=== PATIENT | male | born 1945 | race Caucasian/White ===

== ENCOUNTER → 2018-03-04 09:14 | Outpatient (CLI) | payer OTHER, SELFPAY ==
--- NOTE | 2018-03-04 | DI.MRI.S_ITS ---
PROCEDURE: MR SHOULDER LT WO CON INDICATIONS: Left shoulder pain TECHNIQUE: Noncontrast oblique coronal T2 fast spin echo with fat saturation, oblique sagittal T1 spin echo and T2 fast spin echo with fat saturation, axial T1 spin echo and T2 fast spin echo with fat saturation through the shoulder. COMPARISON: None. FINDINGS: Image quality: Diagnostic. Rotator cuff: There is no full-thickness or high-grade partial-thickness tear of the rotator cuff. However, there is prominent thickening and diffuse increased signal identified involving the distal supraspinatus, infraspinatus, and subscapularis tendons. There are areas of low moderately partial-thickness tearing, most prominent at the junction of the supraspinatus and infraspinatus tendons. A small amount of fluid extending along the infraspinatus myotendinous junction does raise the suspicion for a delaminating/interstitial partial-thickness tear. The teres minor tendon is intact. There is no significant atrophy of the rotator cuff muscles. Bones and bursae: No there is no acute fracture, dislocation, suspicious osseous lesion, or evidence of avascular necrosis. Moderate to severe degenerative changes are noted involving the glenohumeral and acromioclavicular joints with associated marginal osteophytes and degenerative/reactive marrow edema with areas of degenerative cystic change and chondromalacia. There is a moderate-sized glenohumeral joint effusion. A small amount of fluid is contained within the subacromial subdeltoid bursa. Capsule and soft tissues: Evaluation of the labrum and the glenohumeral ligaments is difficult without intra-articular contrast. However, circumferential degenerative tearing of the labrum is present. The long head of biceps tendon is edematous and thickened along its intra-articular course, suggesting partial-thickness tearing and prominent tendinopathy. There is slight edema of the inferior glenohumeral ligament, which may be related to a ligamentous sprain. No full-thickness ligamentous tears are evident. IMPRESSION: 1. Low to moderate grade partial-thickness tearing and prominent tendinopathy of the rotator cuff tendons is more prominent at the junction of the supraspinatus and infraspinatus tendons. 2. Moderate to severe degenerative changes of the glenohumeral and acromioclavicular joint. 3. Prominent tendinopathy and probable intrasubstance partial thickness tearing of the long head of the biceps tendon. 4. Circumferential degenerative tearing of the labrum. 5. Possible low-grade sprain of the inferior glenohumeral ligament. 6. A small moderate-sized glenohumeral joint effusion. Dictated by: Michael Vasquez M.D. on 03/04/2018 at 10:47 Approved by: Michael Vasquez M.D. on 03/04/2018 at 11:15
== END ==
PROVIDERS: PCP Nurse Practitioner Primary Care; Visit Provider Nurse Practitioner Primary Care
DX: M25.512 Pain in left shoulder (principal); M75.102 Unspecified rotator cuff tear or rupture of left shoulder, not specified as traumatic; M19.012 Primary osteoarthritis, left shoulder; S46.112A Strain of muscle, fascia and tendon of long head of biceps, left arm, initial encounter
CPT/HCPCS: 73221

== ENCOUNTER 2018-05-03 06:43 | Inpatient (IN) | payer OTHER, SELFPAY ==
[2018-04-04 08:48] VITALS: BMI 42.5
[2018-05-03] VITALS (13 sets, daily range): BP systolic 109–176; BP diastolic 65–101; PULSE 70–81; RESP 14–24; TEMP 36–37.3; O2SAT 91–95; BMI 42.5
--- NOTE | 2018-05-03 | DI.RAD.S_ITS ---
PROCEDURE: XR SHOULDER LT 1V INDICATIONS: POST OPERATIVE TOTAL LEFT SHOULDER. TECHNIQUE: 1 views of the shoulder were acquired. COMPARISON: None. FINDINGS: Bones: Expected postoperative changes are present related to left shoulder arthroplasty. The metallic prostatic component appears to be appropriately seated. No obvious fractures are evident. Degenerative changes of the chronic clavicular joint are present. Soft tissues: No suspicious soft tissue calcifications. There may be a surgical drainage catheter overlying the left shoulder. No definitive unexpected radiopaque foreign bodies are appreciated. IMPRESSION: Expected postoperative changes related to a left shoulder arthroplasty. Dictated by: Michael Vasquez M.D. on 05/03/2018 at 10:12 Approved by: Michael Vasquez M.D. on 05/03/2018 at 10:14
[2018-05-03] MEDS: LACTATED RINGERS 1,000 ML 42 ML IV ×2 (07:07→10:22)
[2018-05-03] MEDS: VANCOMYCIN 1,000 MG/200 ML FROZ.PIGGY 200 MG IV ×2 (07:07→19:32)
--- NOTE | 2018-05-03 07:46 | PM.PREOP ---
Pre-operative Note Interval Note Pre-op Check: Yes History & Physical Reviewed by Physician and Yes Exam Performed Changes: No
[2018-05-03] MEDS: MIDAZOLAM 2 MG/2 ML VIAL IV (07:47)
--- NOTE | 2018-05-03 07:52 | P.OP_ITS ---
Operative Date/Time/Diagnoses Date of procedure: 05/03/18 Time of procedure: 10:00 Pre-op diagnosis: Left shoulder osteoarthritis Post-op diagnosis: same Procedure & Clinicians Procedure: Left total shoulder replacement Same procedure as scheduled: Yes Indications: The patient has had progressively worsening left shoulder pain with radiographic changes consistent with arthritis. Non-operative management has failed and the patient has requested total shoulder replacement. The risks, benefits and alternatives to surgery were discussed with the patient prior to proceeding. Risks discussed included, but were not limited to, failure to relieve pain, stiffness, infection, nerve damage, deep venous thrombosis, pulmonary embolism, stroke, coma, heart attack, permanent paralysis and , as well as the potential need for eventual revision of the prosthetic. Surgeon: De Frye [employer] Le[employer] Manager: Noemí Lantigua Click Yes if Unassisted: No Anesthesia Type: General, Peripheral nerve block and Local Operative Notes Findings: Severe glenohumeral osteoarthritis. Closure Type: primary Specimen(s): none sent Implants & Drains: Implants used in this procedure included a DJO Altivate short stem total shoulder system with a size 54 all polyethylene pegged E plus glenoid, a 14 x 70 mm short humeral stem, a neutral humeral neck and a 54 mm x 20 mm neutral humeral head. Applied: drain(s) and implant(s) Estimated Blood Loss (mL): 100 Blood products transfused: none Procedure in detail: The patient was seen in the pre-operative area, where the patient identified the left shoulder as the operative site and this was marked with my initials. The patient received pre-operative antibiotics, underwent an interscalene block, and was taken to the operating room and placed on the operative table in the supine position. After satisfactory anesthesia, a full ? time out? was performed. The patient was repositioned in the ?beach chair? position using a dedicated positioner. All pressure points were well padded, and the knees were slightly bent to prevent tension on the sciatic nerves. The left arm was prepared from the fingers to the base of the neck with ChloroPrep in the usual fashion and draped through sterile drapes. An approximately 15 cm incision was created, starting at the clavicle above the coracoid process and extended towards the deltoid insertion. The deltopectoral interval was used to access the shoulder. The cephalic vein was taken medially. A self retractor was placed. The upper centimeter of the pectoralis major tendon was released. The ?three sisters? were identified and cauterized. The axillary nerve was palpated and protected throughout the case. The biceps was released from its groove and tenodesed over the top of the pectoralis major tendon. The subscapularis was released from the lesser tuberosity with a subscapularis peel and tagged for later repair. The shoulder was dislocated and a cutting guide was used for the proximal humeral osteotomy in 30 degrees of retroversion. A starter Reamer was used followed by the cylindrical reamers. This continued in larger sizes in till cortical bite was achieved. Sequential broaching was then performed until a line to line fit with the Reamer occurred. A proximal humeral protector was then placed. We then removed the self-retaining retractor and placed retractors to access the glenoid. The subscapularis was released with a ?360 degree release? with care being taken to protect the axillary nerve with the inferior portion of this procedure. The remnant of labrum and biceps stump were removed. The appropriate size reamer was chosen with the glenoid sizer, and the guide pin placed. The glenoid was appropriately reamed. The guide for the peripheral holes was used and the center hole enlarged. The trial glenoid was placed with good stability. We then cemented the final implant into place after irrigating the peg holes and drying them with thrombin-soaked Gelfoam. We returned our attention to the humerus, a trial humeral head was applied and a trial reduction performed. Stability was checked with 50% posterior translation with spontaneous reduction, 45 degrees external rotation with the subscapularis held in the repaired position, and 70? internal rotation in the ? scarecrow position?. This was felt to be satisfactory and the appropriate implants were opened. Five holes were drilled along the humeral osteotomy and #2 TiCron sutures placed for eventual subscapularis repair. The humeral prosthetic was impacted into the humerus. The humeral head was applied when the stem was still slightly proud and impacted to both seat the head and fully seat the stem. The joint was relocated one final time. The joint was irrigated and the subscapularis repaired to the previously placed sutures using Vasyl-Jono sutures. The top of the subscapularis was closed to the leading edge of the supraspinatus with a figure of 8 #2 TiCron to close the rotator interval. A deep drain was placed and brought out supero-laterally. The deltopectoral interval was closed with interrupted 0 Vicryl. The subcutaneous layer was closed with 3-0 Vicryl, and the skin with a running 3-0 V-Lock suture and SteriStrips. An Aquacel Ag dressing was applied, the patient?s arm was placed in a sling, and the patient was taken to recovery having tolerated the procedure well. Complications: none Condition: stable Disposition: PACU Plan for aftercare: The patient will be maintained on a standard total shoulder replacement protocol with passive range of motion limited to 90 degrees forward flexion, 0 degrees external rotation at the side, 0 degrees abduction and internal rotation to the body. The patient will receive aspirin and sequential compression devices for DVT prophylaxis. The patient will be discharged home when safe for the home environment, likely tomorrow.
[2018-05-03] MEDS: fentaNYL 100 MCG/2 ML INJ 50 MCG IV (08:05)
--- NOTE | 2018-05-03 08:06 | SUR.PREOP ---
Block start time 49949 . Monitoring initiated and maintained throughout procedure. Oxygen and medications given per anesthesiologist instructions. Patient remained stable throughout procedure, no adverse reactions noted. Block end time 3905 .
--- NOTE | 2018-05-03 08:48 | SUR.OPER ---
Beach chair with Ja/Jessie shoulder positioner. Lower body on padded OR bed. Head in foam padded head cradle, secured with straps. Non-operative arm secured <90 degrees abduction. Pillow under knees. Safety belt at thigh. Cloth tape over blanket over lower legs.
[2018-05-03] MEDS: BUPIVACAINE 0.25% W/ EPI VIAL 50 ML INJ (09:01)
[2018-05-03] MEDS: THROMBIN (BOVINE) 5,000 UNIT VIAL 5000 UNIT TOP (09:03)
[2018-05-03] MEDS: ONDANSETRON 4 MG/2 ML INJ IV (10:49)
[2018-05-03] MEDS: hydrOXYzine 50 MG/ML INJ 25 MG IM (10:53)
--- NOTE | 2018-05-03 11:33 | PC.NURSE ---
Addendum entered by Bella Jordan R.N. 05/03/18 13:57: Pt up to bathroom with SBA, gait steady. Voided, denies need for pain med, taking food and fluids. Original Note: Addendum entered by Bella Jordan R.N. 05/03/18 13:06: Pt taking some fluids and pudding, denies nausea. Denies need for pain meds. Original Note: Pt to room 1110, alert, oriented, denies pain, CMS+ LUE, arm in a sling. Reports a little nausea on the way up. No antiemetic given. Sats on 2L 94% while sleeping, SCD's on. Pt oriented to room ,call light.
--- NOTE | 2018-05-03 16:00 | PT.IIE ---
Current Diagnoses Primary osteoarthritis, left shoulder (05/03/18) Surgery Performed Operation Date: 05/03/18 07:45 Actual Procedures p Total Shoulder Arthroplasty(Left) - De Frye MD Surgical History (Last Reviewed 05/03/18 @ 12:48 by Noemí Marc, PT) History of arthroplasty of right knee (Acute) History of arthroscopy of right shoulder (Acute) History of esophageal surgery (Acute) History of vasectomy (Acute) Hx of tonsillectomy (Acute) Status post left unicompartmental knee replacement (Acute) Medical History (Last Reviewed 05/03/18 @ 12:48 by Noemí Marc, PT) Arthritis (Acute) Asthma (Acute) Bigeminy (Acute) Diverticulosis (Acute) GERD (gastroesophageal reflux disease) (Acute) Gout (Acute) HTN (hypertension) (Acute) Kidney stones (Acute) Post-polio syndrome (Acute) Rash (Acute) Physical Therapy Inpatient Evaluation/Re-Eval M1 PT/OT-IP Prior Functional Status Start: 05/03/18 16:06 Freq: NEEDED Status: Active Protocol: Document 05/03/18 16:00 DLM (Rec: 05/03/18 16:24 DL [id number]) Medical Review Prior Functional Status Medical History Reviewed Yes Diet/Fluid Consistency Regular Communication WNL Mobility and Gait Independent without device, community distances, active Activities of Daily Living and IADL's Independent Social History Household Members spouse Living Arrangements House Number of Floors (Floors) One Floor Number of Stairs To Enter/Railing? 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 M2 PT-IP Current Condition Start: 05/03/18 16:06 Freq: NEEDED Status: Active Protocol: Document 05/03/18 16:00 DLM (Rec: 05/03/18 16:24 DLM [id number]) Physical Therapy Current Condition Current Condition Evaluation Date 05/03/18 Treatment Diagnosis L Total shoulder arthroplasty Onset Date 05/03/18 Precautions Shoulder Precautions Sling PROM Internal Rotation to Body No External Rotation No Abduction Forward Flexion to 90 degrees Pendulums Other Precautions NWB left shoulder Weight Bearing Status Weight Bearing Status Non-Weight Bearing M3 PT-IP Subjective Start: 05/03/18 16:06 Freq: NEEDED Status: Active Protocol: Document 05/03/18 16:00 DLM (Rec: 05/03/18 16:24 DL [id number]) Subjective Physical Therapy Visit Type Type Initial Evaluation Visit Start Time 15:30 Visit Stop Time 16:00 Total Visit Minutes 30 Number of POLICEMAN Visits 0 Physical Therapy Visit Comments Patient Comments His arm is still pretty numb, plans to sleep in his recliner at home as needed Short Term Goals He wants to discharge home Therapy Pain Assessment Pain When Pain Assessed At Rest Pain Present Pain Present Denied Pain M4 PT-IP Mobility and Gait Start: 05/03/18 16:06 Freq: NEEDED Status: Active Protocol: Document 05/03/18 16:00 DLM (Rec: 05/03/18 16:24 [facility] [id number]) PT-Bed Mobility Assessment Rolling Type of Rolling Roll to Right Level of Assist Standby Assistance Supine to Sit Supine to Sit Standby Assistance Head of Bed Elevated Sit to Supine Sit to Supine Standby Assistance Head of Bed Elevated Scooting Scooting to Edge of Bed Independent PT-Transfer Assessment Sit to and From Stand Sit to and from Stand Independent Equipment Transfer Assistive Device None Gait Assessment Gait Gait Assistance Required: Standby Assistance Distance (Feet) (feet) 300 Able to Maintain Weight Bearing Status Yes During Gait Assistive Devices Assistive Device None Orthotic/Prosthetic Devices or Brace: Yes Gait Deviations General Gait Pattern Wide Based Gait Comments Gait Comments pt steady on his feet for gait , educated pt protect shoulder and minimize his fall risks PT-Balance Assessment Sitting Balance and Reactions Static Sitting Balance Ability Normal Dynamic Sitting Balance Ability Normal Standing Balance and Reactions Static Standing Balance Ability Good Dynamic Standing Balance Ability Good Device Used none M5 PT-IP Objective Assessments Start: 05/03/18 16:06 Freq: NEEDED Status: Active Protocol: Document 05/03/18 16:00 DLM (Rec: 05/03/18 16:24 [facility] [id number]) Orientation Orientation/Cognition Level of Alertness Alert Orientation Name Age Birthday Month Date Year Day of Week Place Situation Language Function Ability No Deficits Noted Safety Awareness Understands Safety Issues Memory Description No Deficits Noted Gross Range of Motion Upper Extremity ROM Assessment Left Impaired Impairments post-op restrictions, did not attempt left shoulder ROM today since block still in affect Lower Extremity ROM Assessment Within Functional Limits Strength Upper Extremity Strength Assessment Left Impaired Shoulder Post-op restrictions, no use left shoulder Elbow unable to move at this time with block in affect Wrist can actively move left Hand moving actively Lower Extremity Strength Assessment Within Functional Limits Coordination Assessment Gross Coordination Gross Coordination WNL Sensation Assessment Sensation Gross Sensation Left UE Impaired Light Touch Impaired Sensation Description Numbness Comments Sensation Comments post-op associated with block Muscle Tone Muscle Tone WNL Yes M6 PT-IP Treatment Start: 05/03/18 16:06 Freq: NEEDED Status: Active Protocol: Document 05/03/18 16:00 DLM (Rec: 05/03/18 16:24 DLM [id number]) Physical Therapy Treatment Education Education Provided Precautions Weight Bearing Status Safety Brace Education Donning [place] Patient Caregiver M7 PT-IP Assessment and Plan Start: 05/03/18 16:06 Freq: NEEDED Status: Active Protocol: Document 05/03/18 16:00 DLM (Rec: 05/03/18 16:24 DLM [id number]) PT Summary Assessment and Plan Potential Rehabilitation Potential Good Status of Condition at Evaluation Evolving Summary Impairments Pain ROM Strength Activity Tolerance Assessment Summary He tolerated activity well this visit. His left UE is still numb post-op due to the block. Post-op exercises and precautions verbally reviewed but none performed due to the affects of the block. He tolerated gait in the carver well with no nausea/light- headedness. Will follow him tomorrow for post-op education . Anticipate if he progresses well tomorrow he will be able to discharge home with his to assist. Goals Bed Mobility Goal Independent Transfer Goal Independent Gait Goal Independent Gait Distance 300 feet Other Goals demonstrate good understanding of post-op restrictions and ex Days to Meet Goals 2 Frequency of Treatment Frequency Of Treatment Twice a Day Treatment Plan Physical Therapy Treatment Plan Bed Mobility Training Transfer Training Gait Training Therapeutic Exercise Post Op Education Discharge Planning Hot or Cold Pack Other Recommendations and Next Treatment do HEP next visit (after block Focus is worn off) Recommendations To Nursing Amount of Assist Needed Standby Assistance Discharge Recommendations PT Discharge Recommendations Home with Assistance Outpatient PT
[2018-05-03] MEDS: ALLOPURINOL 300 MG TABLET PO (17:28)
[2018-05-03] MEDS: ACETAMINOPHEN 325 MG TABLET 975 MG PO ×2 (17:28→21:31)
[2018-05-03] MEDS: IBUPROFEN 200 MG TABLET 400 MG PO (17:29)
[2018-05-03] MEDS: AMLODIPINE 5 MG TABLET 7.5 MG PO (17:30)
[2018-05-03] MEDS: DOCUSATE 100 MG CAPSULE PO (21:32)
[2018-05-03] MEDS: ASPIRIN EC 81 MG TABLET PO (21:32)
--- NOTE | 2018-05-03 21:48 | PC.NURSE ---
Milo denies pain to L shoulder, reports still numb. Does have more feeling in LFA, wiggling fingers, hand/fingers warm & radial pulse is strong. Arm in sling, ice pack in place. Aquacel is CDI. IV Vanco infused, IV now saline locked. VS stable. 1L O2 sat 95% Ox3 and using call button appropriately.
[2018-05-04 00:40] VITALS: BP 129/73; PULSE 77; RESP 16; TEMP 36.7; O2SAT 93
[2018-05-04 03:47] VITALS: BP 130/57; PULSE 78; RESP 16; TEMP 36.7; O2SAT 94
[2018-05-04] MEDS: OXYCODONE IR 5 MG TABLET PO ×2 (03:54→08:42)
[2018-05-04 05:18] LABS: Hematocrit 38.4 % (41-53); Hemoglobin 12.9 g/dL (13.5-17.5); Mean Corpuscular HGB Conc 33.6 % (30-36); Mean Corpuscular Hemoglobin 33.4 PG (26-34); Mean Corpuscular Volume 99.5 fL (80-100); Platelet Count 261 X10^3/uL (150-400); Red Blood Cell Count 3.86 X10^6/uL (4.5-5.9); Red Cell Distribution Width 14.2 % (11.6-14.8); White Blood Cell Count 18.8 X10^3/uL (4.5-11.0)
[2018-05-04 07:20] VITALS: BP 122/61; PULSE 71; RESP 17; TEMP 36.6; O2SAT 92
--- NOTE | 2018-05-04 07:24 | PM.DS.1 ---
History of Present Illness Chief complaint: [id number] Discharge Providers Date of admission: 05/03/18 06:43 Primary care physician: JENNIFER Agarwal Consults: 05/03/18 11:25 Consult to Discharge Planning Routine Comment: Consult to Physical Therapy Evaluate & Treat Comment: 90 FF, 0 ER, 0 Abd, IR to body, may do pendulums Physician Instructions: Evaluate and Treat Discharge provider: Rosa Miguel PA-C Exam Vital Signs (past 8 hours): - 05/04/18 00:40 05/04/18 03:47 Temperature 98.0 F 98.0 F Pulse Rate 77 78 Respiratory Rate 16 16 Blood Pressure 129/73 H 130/57 H Pulse Oximetry 93 94 Oxygen Delivery Method Nasal Cannula Oxygen Flow Rate 2 Objective Labs Result Diagrams: 05/04/18 05:06 Labs: Laboratory Results - last 24 hr 05/04/18 05:06 WBC 18.8 H RBC 3.86 L Hgb 12.9 L Hct 38.4 L MCV 99.5 MCH 33.4 MCHC 33.6 RDW 14.2 Plt Count 261 Discharge Plan Discharge Plan Patient Disposition: Home Discharge Med Rec/Prescriptions Prescriptions: New aspirin 81 mg Tablet,Delayed Release (Dr/Ec) 81 mg PO BID Qty: 0 RF: 0 docusate sodium 100 mg Capsule 100 mg PO BID Qty: 0 RF: 0 oxycodone 5 mg Tablet 5 mg PO Q4H PRN (Reason: Pain, Moderate (4-6)) Qty: 40 RF: 0 Continue amlodipine 5 mg Tablet 7.5 mg PO QPM RF: 0 omeprazole 40 mg Capsule,Delayed Release(Dr/Ec) 40 mg PO QPM RF: 0 ibuprofen [Advil] 200 mg Tablet 400 mg PO QPM RF: 0 allopurinol 300 mg Tablet 300 mg PO QPM RF: 0 Discontinued aspirin 81 mg Tablet,Delayed Release (Dr/Ec) 81 mg PO QPM RF: 0 Provider Discharge Instructions Diet: Diet as Tolerated Activity: No weightbearing on operative arm, avoid moving shoulder and wear sling at all times until first post-op appointment. Cold/Heat Therapy: Apply ice for 20 minutes at a time at least hourly while awake. Visit Report/Discharge Packet Instructions: DI for Shoulder Replacement Discharge Data Primary Care Provider: Stephanie Gonzalez Attending Provider: De Frye Admit Date/Time: 05/03/18 06:43 Quality VTE Deep Vein Thrombosis/Pulmonary Embolism Present on Admission: No
--- NOTE | 2018-05-04 07:32 | PM.DS.1 ---
History of Present Illness Date Patient Seen: 05/04/18 Time Patient Seen: 07:20 Chief complaint: [id number] Narrative: History of present illness and physical examination is contained in the chart previously completed note. Please refer to that of for this information. Discharge Providers Date of admission: 05/03/18 06:43 Primary care physician: JENNIFER Agarwal Consults: 05/03/18 11:25 Consult to Discharge Planning Routine Comment: Consult to Physical Therapy Evaluate & Treat Comment: 90 FF, 0 ER, 0 Abd, IR to body, may do pendulums Physician Instructions: Evaluate and Treat Discharge provider: De Frye MD Discharge Date: 05/04/18 Summary Discharge Diagnosis: 1. Left shoulder osteoarthritis 2. Mild post hemorrhagic anemia Hospital Course: The patient was admitted to the hospital and taken directly to the operating room on May 03, 2018 where he underwent a left total shoulder replacement without complications. Tolerated the procedure well and was in good spirits with good pain control on postoperative day 1. He had a mild post hemorrhagic anemia. He also had an elevated white count presumably in response to the stress of surgery and exposure to steroids. On postoperative day 1 it was felt he was stable for discharge. Status at Discharge Cognitive/behavioral status at discharge: At baseline. Functional status at discharge: independent ambulation Overall status at discharge: patient is progressing back to baseline Time Spent with Patient Less than 30 minutes Exam Vital Signs (past 8 hours): - 05/04/18 00:40 05/04/18 03:47 Temperature 98.0 F 98.0 F Pulse Rate 77 78 Respiratory Rate 16 16 Blood Pressure 129/73 H 130/57 H Pulse Oximetry 93 94 Oxygen Delivery Method Nasal Cannula Oxygen Flow Rate 2 Narrative Exam Narrative: Left shoulder wound is dressed with no drainage on the bandage. Light touch is intact in the radial, ulnar, median, muscular cutaneous and axillary nerve distributions. He can extend his thumb, abduct his thumb, abduct his fingers and fire his biceps and deltoid. Objective Labs Result Diagrams: 05/04/18 05:06 Labs: Laboratory Results - last 24 hr 05/04/18 05:06 WBC 18.8 H RBC 3.86 L Hgb 12.9 L Hct 38.4 L MCV 99.5 MCH 33.4 MCHC 33.6 RDW 14.2 Plt Count 261 Radiographs reveal a well-positioned short stem total shoulder prosthesis on the left. Discharge Plan Discharge Plan Patient Disposition: Home Discharge Med Rec/Prescriptions Prescriptions: New aspirin 81 mg Tablet,Delayed Release (Dr/Ec) 81 mg PO BID Qty: 0 RF: 0 docusate sodium 100 mg Capsule 100 mg PO BID Qty: 0 RF: 0 oxycodone 5 mg Tablet 5 mg PO Q4H PRN (Reason: Pain, Moderate (4-6)) Qty: 40 RF: 0 Continue amlodipine 5 mg Tablet 7.5 mg PO QPM RF: 0 omeprazole 40 mg Capsule,Delayed Release(Dr/Ec) 40 mg PO QPM RF: 0 ibuprofen [Advil] 200 mg Tablet 400 mg PO QPM RF: 0 allopurinol 300 mg Tablet 300 mg PO QPM RF: 0 Discontinued aspirin 81 mg Tablet,Delayed Release (Dr/Ec) 81 mg PO QPM RF: 0 Follow up/Referrals: De Frye MD [Physician] - 2 Weeks Provider Discharge Instructions Diet: Diet as Tolerated and Regular Activity: May use left arm with hand in front of torso. Do pendulum exercises several times daily. Cold/Heat Therapy: Ice to right shoulder for 15 minutes at a time as needed. Other treatments: Wear sling, but may come out of sling several times a day for comfort. You will feel more comfortable sleeping in a recliner for at least the first few days. Skin/Wound/Dressing Care Report to your healthcare provider any signs of infection, such as:: chills, fever, night sweats, increased pain and unusual drainage Dressing: You may shower with the dressing in place. If the central strip of the dressing gets wet with water or if blood extends to the edges of the central strip, please call the office. Visit Report/Discharge Packet Instructions: DI for Shoulder Replacement Discharge Data Primary Care Provider: Stephanie Gonzalez Attending Provider: De Frye Admit Date/Time: 05/03/18 06:43 Quality VTE Deep Vein Thrombosis/Pulmonary Embolism Present on Admission: No
[2018-05-04] MEDS: ACETAMINOPHEN 325 MG TABLET 975 MG PO (08:36)
[2018-05-04] MEDS: SODIUM CHLORIDE 0.9% FLUSH 10 ML IV (08:37)
[2018-05-04] MEDS: POLYETHYLENE GLYCOL 3350 17 GM POWD.PACK PO (08:37)
[2018-05-04] MEDS: ASPIRIN EC 81 MG TABLET PO (08:37)
[2018-05-04] MEDS: DOCUSATE 100 MG CAPSULE PO (08:37)
--- NOTE | 2018-05-04 09:00 | PT.IPTN ---
Current Diagnoses Primary osteoarthritis, left shoulder (05/03/18) Surgery Performed Operation Date: 05/03/18 07:45 Actual Procedures p Total Shoulder Arthroplasty(Left) - De Frye MD Physical Therapy Treatment Note M2 PT-IP Current Condition Start: 05/03/18 16:06 Freq: NEEDED Status: Active Protocol: Document 05/03/18 16:00 DLM (Rec: 05/03/18 16:24 DLM [id number]) Physical Therapy Current Condition Current Condition Evaluation Date 05/03/18 Treatment Diagnosis L Total shoulder arthroplasty Onset Date 05/03/18 Precautions Shoulder Precautions Sling PROM Internal Rotation to Body No External Rotation No Abduction Forward Flexion to 90 degrees Pendulums Other Precautions NWB left shoulder Weight Bearing Status Weight Bearing Status Non-Weight Bearing M3 PT-IP Subjective Start: 05/03/18 16:06 Freq: NEEDED Status: Active Protocol: Document 05/04/18 09:00 GGD (Rec: 05/04/18 10:35 GGD [id number]) Subjective Physical Therapy Visit Type Type Treatment Note Visit Start Time 08:35 Visit Stop Time 09:00 Total Visit Minutes 25 Number of SENIOR ANIMAL TRAINER Visits 1 Physical Therapy Visit Comments Patient Comments Pt states he ready to go home. Therapy Pain Assessment Pain When Pain Assessed At Rest Pain Present Pain Present Denied Pain M4 PT-IP Mobility and Gait Start: 05/03/18 16:06 Freq: NEEDED Status: Active Protocol: Document 05/04/18 09:00 GGD (Rec: 05/04/18 10:35 GGD [id number]) PT-Transfer Assessment Sit to and From Stand Sit to and from Stand Independent Equipment Transfer Assistive Device None Gait Assessment Gait Gait Assistance Required: Standby Assistance Distance (Feet) (feet) 60 Assistive Devices Assistive Device None M5 PT-IP Objective Assessments Start: 05/03/18 16:06 Freq: NEEDED Status: Active Protocol: Document 05/03/18 16:00 DLM (Rec: 05/03/18 16:24 DLM [id number]) Orientation Orientation/Cognition Level of Alertness Alert Orientation Name Age Birthday Month Date Year Day of Week Place Situation Language Function Ability No Deficits Noted Safety Awareness Understands Safety Issues Memory Description No Deficits Noted Gross Range of Motion Upper Extremity ROM Assessment Left Impaired Impairments post-op restrictions, did not attempt left shoulder ROM today since block still in affect Lower Extremity ROM Assessment Within Functional Limits Strength Upper Extremity Strength Assessment Left Impaired Shoulder Post-op restrictions, no use left shoulder Elbow unable to move at this time with block in affect Wrist can actively move left Hand moving actively Lower Extremity Strength Assessment Within Functional Limits Coordination Assessment Gross Coordination Gross Coordination WNL Sensation Assessment Sensation Gross Sensation Left UE Impaired Light Touch Impaired Sensation Description Numbness Comments Sensation Comments post-op associated with block Muscle Tone Muscle Tone WNL Yes M6 PT-IP Treatment Start: 05/03/18 16:06 Freq: NEEDED Status: Active Protocol: Document 05/04/18 09:00 GGD (Rec: 05/04/18 10:35 GGD [id number]) Physical Therapy Treatment Exercises Exercises Shoulder Pendulums Wrist ROM Hand ROM Education Education Provided Precautions Weight Bearing Status Brace Education Donning Snead M7 PT-IP Assessment and Plan Start: 05/03/18 16:06 Freq: NEEDED Status: Active Protocol: Document 05/04/18 09:00 GGD (Rec: 05/04/18 10:35 GGD [id number]) PT Summary Assessment and Plan Summary Assessment Summary Pt improving with mobility. He was able to don and doff sling and do post op exercise. He had no unsteadiness with gait. Frequency of Treatment Frequency Of Treatment Twice a Day Treatment Plan Physical Therapy Treatment Plan Bed Mobility Training Transfer Training Gait Training Therapeutic Exercise Post Op Education Discharge Planning Hot or Cold Pack Recommendations To Nursing Amount of Assist Needed Standby Assistance Discharge Recommendations PT Discharge Recommendations Home with Assistance Outpatient PT
--- NOTE | 2018-05-04 09:08 | PM.PNPO.1 ---
Subjective Date Patient Seen: 05/04/18 Time Patient Seen: 07:28 Interval history: Patient seen bedside s/p left TSA POD #1. Pain is well controlled and patient would like to go home today. Exam Vital Signs (past 8 hours): - 05/04/18 03:47 05/04/18 07:20 Temperature 98.0 F 97.9 F Pulse Rate 78 71 Respiratory Rate 16 17 Blood Pressure 130/57 H 122/61 H Pulse Oximetry 94 92 Oxygen Delivery Method Nasal Cannula Oxygen Flow Rate 2 Narrative Exam Narrative: WDWN NAD A&Ox3. Right shoulder incision CDI, FROM of wrist and elbow. NVI in this extremity. Calves soft and compressible. Objective Labs Result Diagrams: 05/04/18 05:06 Labs: Laboratory Results - last 24 hr 05/04/18 05:06 WBC 18.8 H RBC 3.86 L Hgb 12.9 L Hct 38.4 L MCV 99.5 MCH 33.4 MCHC 33.6 RDW 14.2 Plt Count 261 Assessment & Plan Post-op Postoperative Procedures Operation Date: 05/03/18 07:45 Actual Procedures Side Surgeon p Total Shoulder Arthroplasty Left De Frye MD Patient will work with PT today. Once cleared he may go home with VTE prophylaxis and pain medication. Follow up in the office in 2 weeks' time. Quality VTE Deep Vein Thrombosis/Pulmonary Embolism Present on Admission: No
--- NOTE | 2018-05-04 11:50 | CM.DANOTE ---
Discharge Planning/Care Management Case received and met with pt and his Harika this morning 0900. Pt was found up in room independently, LUE sling in place, grooming self at sink. Harika preparing for expected d/c home today. Introduced self and role. Pt is a 72 year old male who admitted yesterday for a planned: L TSA Surgeon: Dr. Frye. Payer: [employer]ol[employer] GAN. PCP: Stephanie Gonzalez PT has worked with pt and all anticipate pt will d/c to home today. CM Discharge Assessment Start: 05/04/18 11:47 Freq: Status: Discharge Protocol: Document 05/04/18 11:47 ITV (Rec: 05/04/18 11:50 ITV [id number]) Discharge Planning Assessment Advance Directives? Yes Advance Directives on File No History Provided By Patient Family Member Medical Record Prior Living Arrangements House Household Members spouse Comment lives with spouse Harika in [place]. Harika is present in room and preparing to take pt home today. Independent with ADL's Yes Is patient alert and oriented? Yes Comment has sling in place/L UE. Is able to don and doff after PT session Comment home with Harika driving. Plans outpt PT when ok'd by ortho team Discharge Plan Home Whiteboard Updated in Patient Room with Yes name and ext. # of Machinery Repair Maintenance Supervisor Review Status In Process Next Review Type Continued Stay Review
== END 2018-05-04 11:28 | disposition home or self-care (01) | DRG 483 ==
PROVIDERS: Admitting Provider Orthopaedic Surgery; PCP Nurse Practitioner Primary Care; Visit Provider Orthopaedic Surgery
PROC: 0RRK0JZ Replacement of Left Shoulder Joint with Synthetic Substitute, Open Approach (ICD-10-PCS; CPT 23472; principal; 2018-05-03 07:45)
DX: M19.012 Primary osteoarthritis, left shoulder (principal); Z68.41 Body mass index [BMI] 40.0-44.9, adult; I10 Essential (primary) hypertension; E66.01 Morbid (severe) obesity due to excess calories; G14 Postpolio syndrome; K21.9 Gastro-esophageal reflux disease without esophagitis
CPT/HCPCS: 36415; 73020; 85027; 97110; 97162; 97530; C1776; J1100; J2250; J2405; J2704; J2795; J3010; J3370; J3410

== ENCOUNTER 2019-02-09 06:40 | Day surgery (SDC) | payer OTHER, SELFPAY ==
[2018-12-26 11:45] VITALS: BMI 42.5
[2019-01-30 09:07] VITALS: BMI 41.3
[2019-02-09] VITALS (11 sets, daily range): BP systolic 114–185; BP diastolic 59–91; PULSE 60–79; RESP 11–17; TEMP 35.9–36.8; O2SAT 90–97; BMI 41.6
--- NOTE | 2019-02-09 | PATH_ITS ---
[facility] Accession Number: [id number] . 01 Material submitted: . gallbladder - GALLBLADDER . 02 Diagnosis: Gallbladder, Cholecystectomy: Chronic cholecystitis with cholelithiasis and cholesterolosis. No evidence of dysplasia or malignancy. [facility]02[facility]13[facility]2019 . 02 Electronically signed: . Ely Hines MD, Pathologist NPI- [id number] . 01 Gross description: . Received in formalin, labeled gallbladder, is an intact gallbladder (length-7.8 cm, diameter-3.3 cm) with-green smooth shiny serosa and a patent cystic duct. A possible lymph node (0.5 x 0.3 x 0.2 cm) is identified. The lumen contains green viscous bile and multiple dark green gritty hard calculi (4.2 x 2.3 x 0.2 cm in aggregate). The mucosa is dark green, smooth and flat with yellow speckles. The wall is up to 0.1 cm thick. No nodules, masses or lesions are identified. Section code: (A1) cystic duct resection margin and two serial sections from the body; (A2) two longitudinal sections from the fundus; (A3) one intact lymph node. ([id number]) /MRV . 02 Pathologist provided ICD-10: K80.60 . 02 CPT . 133104 Performed at: 01 [facility] [address] [place] [address], [place], [place] [id number] MD Curry Spangler MD Phone: [phone] Performed at: 02 [facility] [address] [place], [place] [id number] MD Ely Hines MD Phone: [phone]
[2019-02-09] MEDS: LACTATED RINGERS 1,000 ML 42 ML IV (07:29)
--- NOTE | 2019-02-09 07:51 | PM.PREOP ---
Pre-operative Note Interval Note History & Physical reviewed/Exam performed by Physician: Yes Changes to H&P: No H&P completed within 30 days and has changed as indicated here:: see clinic note from earlier this month
[2019-02-09] MEDS: CEFAZOLIN 2 GM/100 ML FROZ.PIGGY IV (08:01)
--- NOTE | 2019-02-09 08:26 | SUR.OPER ---
Supine on padded OR bed, head on pillow, arms secured on padded arm boards at <90 degrees abduction, legs uncrossed, safety belt at thigh, tape over blanket over lower legs.
[2019-02-09] MEDS: CEFAZOLIN 1 GM VIAL IV (08:43)
[2019-02-09] MEDS: BUPIVACAINE 0.5% (PF) VIAL 30 ML INJ (08:50)
--- NOTE | 2019-02-09 09:24 | PM.OP.1 ---
Operative Date/Time/Diagnoses Date of procedure: 02/09/19 Time of procedure: 09:14 Pre-op diagnosis: cholecystitis chronic with cholelithiasis Post-op diagnosis: same Procedure & Clinicians Procedure: Laparoscopic cholecystectomy Same procedure as scheduled: Yes Indications: Symptomatic gallbladder disease Surgeon: Mayank Baxter Click Yes if Unassisted: Yes Anesthesia Type: General Operative Notes Findings: Whitish thickened gallbladder wall. Small cystic duct. Closure Type: primary Specimen(s): other (Gallbladder) Prosthetic devices, grafts, tissues, transplants, or devices: None Estimated Blood Loss (mL): 5 Blood products transfused: none Procedure in detail: The patient was placed supine on the operating room table and underwent general endotracheal anesthesia. There prepped and draped in the usual fashion. Local anesthetic was infiltrated to the right of the umbilicus due to a prior midline scar and upper abdominal operation and an incision made . It was carried down to the level of the peritoneum which was opened under direct vision. Stay sutures of 0 Vicryl were placed in the anterior and posterior fascial layers . Muscle was retracted bluntly and not divided. A 12 mm cannula was inserted and the abdomen was insufflated. The patient was repositioned and local anesthetic was infiltrated agaiN beneath the right costal margin and 3 small 5 mm ports were inserted. The gallbladder was identified and grasped and elevated. The end was readily identified and dissected out. Cystic duct was identified and from surrounding fat. Three clips were placed across it was divided leaving 2 in the patient. There were 2 sets of vascular appearing structures 1 of which may have been venous. Clips were placed across these and they were divided leaving at least 2 on each structure. The gallbladder is then dissected from its bed in the liver using cautery. It was detached placed in a bag and removed without difficulty through the 12 mm port site. The right upper quadrant was irrigated and suctioned free of fluid. There had been no spillage and there was no bleeding. The ports were all removed. Stay sutures at the 12 mm port were tied. Two 0 PDS sutures were placed between the 0 Vicryl stay sutures. The wounds were all irrigated. Four 0 Vicryl subcuticular stitches was used to close the skin. Exofen was applied. Patient was taken to the recovery area extubated in good condition. Complications: none Condition: stable Disposition: PACU Plan for aftercare: Follow-up in office
[2019-02-09] MEDS: HYDROCODONE/ACET 5/325 TABLET 1 TAB PO (10:06)
--- NOTE | 2019-02-09 10:10 | SUR.PHASEII ---
pt arrived to phase II via stretcher. pt sitting up and talking to RN. Surgical sites on abdomen observed to be c/d/i. pt denies any nausea and rates pain 10/23. Medicated with po pain medication. bed in lowest position and call light given to pt. pt awaiting return of from getting rx filled. pt appears comfortable at this time.
== END 2019-02-09 11:22 | disposition home or self-care (01) ==
PROVIDERS: PCP Family Medicine; Visit Provider Specialist
PROC: 0FT44ZZ Resection of Gallbladder, Percutaneous Endoscopic Approach (ICD-10-PCS; CPT 47562; principal; 2019-02-09 07:45)
DX: K80.10 Calculus of gallbladder with chronic cholecystitis without obstruction (principal); J45.909 Unspecified asthma, uncomplicated; I10 Essential (primary) hypertension
CPT/HCPCS: 47562; 88304; J0690; J1100; J2250; J2405; J2704; J3010

== ENCOUNTER 2019-03-31 06:35 | Day surgery (SDC) | payer OTHER, SELFPAY ==
[2018-12-26 11:45] VITALS: BMI 42.5
--- NOTE | 2019-03-31 | PATH_ITS ---
[facility] Accession Number: [id number] . 01 Material submitted: . PART A: colon - POLYP AT 30 CM PART B: colon - CECAL BIOPSY NEAR APPENDIX PART C: colon - ASCENDING COLON POLYP X3 PART D: colon - POLYP AT 70 CM PART E: colon - BIOPSY AT 32 CM . 02 Diagnosis: A. Colon, Polyp at 30 cm, Biopsy: Hyperplastic polyp. . B. Cecum, Biopsy Near Appendix, Biopsy: Sessile serrated adenoma. . C. Ascending Colon, Polyps x3, Biopsies: Tubular adenomas. . D. Colon, Polyp at 70 cm, Biopsy: Sessile serrated adenoma. . E. Colon, 32 cm, Biopsy: Consistent with inflammatory polyp. Negative for dysplasia and malignancy. . MRV/04/04/2019 . 02 Electronically signed: . Ely Hines MD, Pathologist NPI- [id number] . 01 Gross description: . Part A: POLYP AT 30 CM: Received in formalin are 2 fragment(s) of gamboa, soft tissue measuring 0.1 x 0.1 x 0.1 cm to 0.3 x 0.2 x 0.2 cm which is entirely submitted and submitted entirely in 1 cassette(s) Part B: CECAL BIOPSY NEAR APPENDIX: Received in formalin are multiple fragment(s) of gamboa, soft tissue measuring 0.1 x 0.1 x 0.1 cm to 0.7 x 0.6 x 0.6 cm which is entirely submitted and submitted entirely in 1 cassette(s) Part C: ASCENDING COLON POLYP X3: Received in formalin are multiple fragment(s) of gamboa, soft tissue measuring 0.1 x 0.1 x 0.1 cm to 0.5 x 0.3 x 0.2 cm which is entirely submitted and submitted entirely in 1 cassette(s) Part D: POLYP AT 70 CM: Received in formalin are 2 fragment(s) of gamboa, soft tissue measuring 0.3 x 0.2 x 0.2 cm to 0.5 x 0.2 x 0.2 cm which is entirely submitted and submitted entirely in 1 cassette(s) Part E: BIOPSY AT 32 CM: Received in formalin are multiple fragment(s) of gamboa, soft tissue measuring 0.1 x 0.1 x 0.1 cm to 0.2 x 0.2 x 0.2 cm which is entirely submitted and submitted entirely in 1 cassette(s) /DMC /DMC . 02 Pathologist provided ICD-10: D12.1, D12.2 . 02 CPT . 237961, 786905, 828228, 233688, [id number] Performed at: 01 [facility] [address] [place] [address], [place], [place] [id number] MD Curry Spangler MD Phone: [phone] Performed at: 02 [facility] [address] [place], [place] [id number] MD Ely Hines MD Phone: [phone]
[2019-03-31 07:05] VITALS: BP 143/84; PULSE 52; RESP 16; TEMP 36.5; O2SAT 94
[2019-03-31 07:15] VITALS: BMI 41.4
[2019-03-31] MEDS: SODIUM CHLORIDE 0.9% 1,000 ML 150 ML IV (07:26)
--- NOTE | 2019-03-31 08:05 | PM.HP.1 ---
History of Present Illness Date Patient Seen: 03/31/19 Time Patient Seen: 08:05 Chief complaint: [id number] Narrative: Patient is a gentleman here for a screening colonoscopy. His last exam was through 4 years ago. He is not certain when. But he was advised to have a scope done now. He believes polyps were removed. Patient History Medical History Arthritis (Acute) Asthma (Acute) Bigeminy (Acute) Diverticulitis (Acute) Diverticulosis (Acute) GERD (gastroesophageal reflux disease) (Acute) Gout (Acute) HTN (hypertension) (Acute) Kidney stones (Acute) Pneumonia (Acute) Post-polio syndrome (Acute) Rash (Acute) Surgical History (Updated 03/31/19 @ 08:06 by Mayank Baxter MD) History of laparoscopic cholecystectomy (Resolved) History of arthroplasty of left shoulder (Acute 05/03/18) History of arthroplasty of right knee (Acute ~2014) History of arthroscopy of right shoulder (Acute) History of esophageal surgery (Acute) History of vasectomy (Acute) Hx of tonsillectomy (Acute) Status post left unicompartmental knee replacement (Acute ~2013) Family History Mother Diabetes mellitus Sister Diabetes mellitus Social History household members: spouse Smoking Status: Never smoker alcohol intake: current Family & Social History Family History Mother Diabetes mellitus Sister Diabetes mellitus Social History: household members spouse Tobacco & Substance use: Smoking Status Never smoker alcohol intake current alcohol intake frequency a few times a month Substance Use Type does not use Meds Home Medications Medication Instructions Recorded Confirmed Type allopurinol 300 mg PO QPM 04/04/18 03/31/19 History aspirin 81 mg PO DAILY 01/30/19 03/31/19 History amlodipine 7.5 mg PO DAILY 03/31/19 03/31/19 History Allergies Allergy/AdvReac Type Severity Reaction Status Date / Time Penicillins Allergy Pt unsure Verified 02/22/19 11:09 of reaction, has had in past w/no problem Review of Systems Review of Systems All systems reviewed & are unremarkable except as noted in HPI and below Musculoskeletal Comments: History of gout. Many years since last attack Exam Vital Signs (past 8 hours): - 03/31/19 07:05 Temperature 97.7 F Pulse Rate 52 L Respiratory Rate 16 Blood Pressure 143/84 H Pulse Oximetry 94 Oxygen Delivery Method Room Air Narrative Exam Narrative: Pleasant cooperative patient no apparent distress. Lungs are clear to auscultation. No rales or rhonchi. Heart regular rate and rhythm no murmur gallop. Abdomen is soft nontender without mass. Large incisional hernia upper midline. Patient is alert and oriented x3. Assessment & Plan Assessment & Plan narrative: The patient for a screening colonoscopy. I have discussed the procedure with them. Risks of bleeding, perforation which would necessitate major operation, failure to find remove all lesions, the potential tattoo were all discussed. All questions were answered. They wished to proceed.
--- NOTE | 2019-03-31 08:08 | PM.PREOP ---
Pre-operative Note Interval Note History & Physical reviewed/Exam performed by Physician: Yes Changes to H&P: No ASA Class (for procedural sedation): II
--- NOTE | 2019-03-31 09:23 | PM.OP.ENDO ---
Operative Date/Time/Diagnoses Date of procedure: 03/31/19 Time of procedure: 09:24 Pre-op diagnosis: History of polyps. Last colonoscopy through 4 years ago Post-op diagnosis: same (Peguero diverticulosis. Multiple small polyps in the right colon. Large sigmoid polypoid mass) Procedure & Clinicians Study performed: Colonoscopy with hot snare polypectomy, cold biopsy, ink injection. Same procedure as scheduled: Yes Indications: Screening Surgeon: Mayank Baxter Procedure Notes SCOAP/Timeout: Performed Procedure in detail: The patient was placed in the left lateral decubitus position and underwent IV sedation directed by the surgeon consisting of fentanyl and Versed. Digital exam was unremarkable except for decreased sphincter tone. I could not feel is prostate well. The scope was inserted and advanced through the rectum into the sigmoid, descending, transverse, and ascending colon. I noted extensive sigmoid diverticulosis and scattered diverticulosis throughout the colon. At 30 cm there was a small polyp which I biopsied and removed on the way in. Also, as I went through the sigmoid there was an inflamed area and a ink injection noted. I decided to investigate that further on the way out.. The cecum was reached identified by the ileocecal valve and the appendiceal opening. The ileocecal valve was[not] cannulated. Adjacent to the appendiceal opening was a round lesion on a short stalk. It did not have the appearance of a typical polyp however. Hot snare polypectomy was performed and the lesion appeared to be completely removed. The scope was gradually brought out. Multiple small Polyps were found at the ascending colon and at 70 cm. At 35 cm from the anal verge there was a inflamed if lesion that appeared to be polypoid on a very broad base. It appeared to occupy a about 20% of the lumen at the base. The surface appeared to be inflamed and necrotic. It had a worrisome appearance for malignancy. Multiple biopsies were taken. It did not appear to be amenable to snare polypectomy due to the very broad base. I injected ink just distal to this and in coming back just a little further encountered the prior injections site that I had noted on the way in. I injected 2 more areas here. The scope was then gradually brought into the rectum. The scope ultimately was retroflexed in the rectum. The appearance was normal except for some minor scarring. The scope was removed and the patient tolerated the procedure well. Prep was very good. Scope withdrawal time: Almost 27 minutes total Sedation minutes: 57 Findings: diverticulosis (Peguero colonic), polyp (Multiple small and 1 large polyp 1 cecal polyp which was snared.) and possible cancer Specimen(s): other (Polyps and biopsies of the sigmoid lesion) Complications: none Plan for aftercare: Will see patient in the office. Follow up: weeks Disposition: PACU
[2019-03-31 09:26] VITALS: BP 134/92; PULSE 80; RESP 14; TEMP 36.6; O2SAT 98
[2019-03-31 09:31] VITALS: BP 139/81; PULSE 62; RESP 15; O2SAT 96
[2019-03-31 09:35] VITALS: BP 108/54; PULSE 68; RESP 16; O2SAT 97
[2019-03-31 10:00] VITALS: BP 103/71; PULSE 51; TEMP 35.9; O2SAT 94
[2019-03-31] MEDS: MIDAZOLAM 5 MG/5 ML VIAL IV (10:30)
[2019-03-31] MEDS: fentaNYL 250 MCG/5 ML INJ IV (10:30)
== END 2019-03-31 10:09 | disposition home or self-care (01) ==
PROVIDERS: PCP Family Medicine; Visit Provider Specialist
PROC: 0DJD8ZZ Inspection of Lower Intestinal Tract, Via Natural or Artificial Opening Endoscopic (ICD-10-PCS; CPT 45378; principal; 2019-03-31 07:45)
DX: Z86.010 Personal history of colon polyps (principal); K57.30 Diverticulosis of large intestine without perforation or abscess without bleeding; D12.1 Benign neoplasm of appendix; D12.2 Benign neoplasm of ascending colon
CPT/HCPCS: 45385; 45381; 45380; 99152; 99153; J2250; J3010

== ENCOUNTER 2019-05-11 10:23 | Day surgery (SDC) | payer OTHER, SELFPAY ==
[2018-12-26 11:45] VITALS: BMI 42.5
[2019-05-11] VITALS (7 sets, daily range): BP systolic 113–139; BP diastolic 76–83; PULSE 60–71; RESP 14–20; TEMP 36.2–36.7; O2SAT 92–94; BMI 41.4
--- NOTE | 2019-05-11 | PATH_ITS ---
[facility] Accession Number: [id number] . 01 Material submitted: . anal canal - LESION AT 35 CM BIOPSY . 01 Clinical history: . ANAL POLYP . 02 Diagnosis: Colon Biopsies at 35 cm: Multiple fragments of colon mucosa with changes of mild active colitis with focal cryptitis and focal architectural distortion. Two fragments consistent with benign inflammatory polyp. Negative for dysplasia and malignancy. MRV/05/12/2019 . 02 Electronically signed: . Reji Fairchild MD, Pathologist NPI- [id number] . 01 Gross description: . LESION AT 35 CM BIOPSY: Received in formalin are multiple fragment(s) of gamboa, soft tissue measuring 0.1 x 0.1 x 0.1 cm to 0.3 x 0.3 x 0.3 cm which is entirely submitted and submitted entirely in 1 cassette(s) /DMC /DMC . 02 Pathologist provided ICD-10: K63.5 . 02 CPT . 281290 Performed at: 01 [facility] [address] [facility], [place], [place] [id number] MD Curry Spanglre MD Phone: [phone] Performed at: 02 [facility] [address] [place], [place] [id number] MD Ely Hines MD Phone: [phone]
--- NOTE | 2019-05-11 11:14 | PM.HP.1 ---
History of Present Illness History of Present Illness Date Patient Seen: 05/11/19 Time Patient Seen: 11:14 Chief complaint: [id number] Narrative: Patient is a gentleman with a large polyp at 35 cm. Biopsies were consistent with an inflammatory lesion but it is visible appearance suggestive malignancy. He is brought back for additional biopsies to ensure the correct diagnosis was made due to a problem with sampling. Patient History Medical History Arthritis (Acute) Asthma (Acute) Bigeminy (Acute) Diverticulitis (Acute) Diverticulosis (Acute) GERD (gastroesophageal reflux disease) (Acute) Gout (Acute) HTN (hypertension) (Acute) Kidney stones (Acute) Pneumonia (Acute) Post-polio syndrome (Acute) Rash (Acute) Surgical History (Updated 05/11/19 @ 11:01 by Ely Swain RN) History of arthroplasty of left shoulder (Acute 05/03/18) History of arthroplasty of right knee (Acute ~2014) History of arthroscopy of right shoulder (Acute) History of cholecystectomy (Acute) History of esophageal surgery (Acute) History of laparoscopic cholecystectomy (Resolved) History of vasectomy (Acute) Hx of tonsillectomy (Acute) Status post left unicompartmental knee replacement (Acute ~2013) Family History Mother Diabetes mellitus Sister Diabetes mellitus Social History household members: spouse Smoking Status: Never smoker alcohol intake: current Family & Social History Social History: household members spouse Tobacco & Substance use: Smoking Status Never smoker alcohol intake current alcohol intake frequency a few times a month Substance Use Type does not use Meds Home Medications and Allergies Home Medications Medication Instructions Recorded Confirmed Type allopurinol 300 mg PO QPM 04/04/18 05/11/19 History amlodipine 7.5 mg PO DAILY 03/31/19 05/11/19 History Allergies Allergy/AdvReac Type Severity Reaction Status Date / Time Penicillins Allergy Pt unsure Verified 04/07/19 14:11 of reaction, has had in past w/no problem Review of Systems Review of Systems ROS Unobtainable: All systems reviewed & are unremarkable except as noted in HPI and below Exam Vital Signs (past 8 hours): - 05/11/19 11:03 Temperature 97.4 F L Pulse Rate 67 Respiratory Rate 20 Blood Pressure 139/78 Pulse Oximetry 94 Oxygen Delivery Method Room Air Narrative Exam Narrative: Pleasant cooperative patient no apparent distress. Lungs are clear to auscultation. No rales or rhonchi. Heart regular rate and rhythm no murmur gallop. Abdomen is soft nontender without mass. No obvious hernias. Patient is alert and oriented x3. Assessment & Plan Assessment & Plan narrative: The patient for a flexible sigmoidoscopy and biopsy. I have discussed the procedure with him. Risks of bleeding, perforation which would necessitate major operation, failure to find remove all lesions, the potential tattoo were all discussed. All questions were answered. He wished to proceed.
[2019-05-11] MEDS: SODIUM CHLORIDE 0.9% 1,000 ML 200 ML IV (11:24)
--- NOTE | 2019-05-11 12:02 | PM.PREOP ---
Pre-operative Note Interval Note History & Physical reviewed/Exam performed by Physician: Yes Changes to H&P: No ASA Class (for procedural sedation): II
[2019-05-11] MEDS: fentaNYL 250 MCG/5 ML INJ IV (12:10)
[2019-05-11] MEDS: MIDAZOLAM 5 MG/5 ML VIAL IV (12:10)
--- NOTE | 2019-05-11 12:34 | PM.OP.ENDO ---
Operative Date/Time/Diagnoses Date of procedure: 05/11/19 Time of procedure: 12:34 Pre-op diagnosis: Large lesion at about 35 cm from the anal verge. Here for re-biopsy to confirm diagnosis and to ensure there was not a sampling air at the patient's last scope due to the very suspicious appearance of the lesion for malignancy. Post-op diagnosis: same Procedure & Clinicians Study performed: Flexible sigmoidoscopy with biopsy Same procedure as scheduled: Yes Indications: see preop diagnosis Surgeon: Mayank Batxer Procedure Notes SCOAP/Timeout: Performed Procedure in detail: Patient was placed in left lateral decubitus position and was given sedation using fentanyl and Versed as directed by the surgeon. Digital exam was remarkable for a narrowed anus. The scope was inserted and advanced through the rectum into the sigmoid colon. I encountered the lesion at 35 cm and began to take biopsies. With great difficulty I was able to get above the lesion at and backed the scope out. Additional biopsies were taken. I felt diet adequately sampled the lesion. The scope was removed and the patient tolerated the procedure well. Scope withdrawal time: Not applicable Sedation minutes: 19 Findings: diverticulosis and other findings (Large inflamed lesion 35 cm from the anal verge) Specimen(s): other (Biopsy of inflamed lesion) Complications: none Post-procedure Recommendations: Colonscopy in 1 year Follow up: as needed Disposition: PACU
== END 2019-05-11 13:13 | disposition home or self-care (01) ==
PROVIDERS: Family Provider Family Medicine; PCP Family Medicine; Visit Provider Specialist
PROC: 0DJD8ZZ Inspection of Lower Intestinal Tract, Via Natural or Artificial Opening Endoscopic (ICD-10-PCS; CPT 45378; principal; 2019-05-11 11:45)
DX: K62.0 Anal polyp (principal); K52.9 Noninfective gastroenteritis and colitis, unspecified; K62.89 Other specified diseases of anus and rectum; I10 Essential (primary) hypertension; J45.909 Unspecified asthma, uncomplicated; G14 Postpolio syndrome
CPT/HCPCS: 45331; 88305; 99152; J2250; J3010

== ENCOUNTER → 2020-03-29 11:03 | Outpatient (CLI) | payer OTHER, SELFPAY ==
[2018-12-26 11:45] VITALS: BMI 42.5
--- NOTE | 2020-03-29 11:15 | DI.CT.S_ITS ---
PROCEDURE: CT SINUS SCREEN WO CON INDICATIONS: Other chronic sinusitis TECHNIQUE: Noncontrast 3.0 mm axial images acquired from the frontal sinuses to the mid-sella, with coronal and sagittal reformats. For radiation dose reduction, the following was used: automated exposure control, adjustment of mA and/or kV according to patient size. COMPARISON: None. FINDINGS: Image quality: Excellent. Maxillary Sinuses: No bony remodeling or destruction. Bony septations are seen within both maxillary sinuses. There is a mucous retention cyst seen involving the superior aspect of the right maxillary sinus. There is mild to moderate right-sided and minimal left-sided mucosal thickening within the maxillary sinuses. Ethmoid Air Cells: No bony remodeling or destruction. Mild mucosal thickening is seen, particularly involving the posterior aspect of the left ethmoid air cells. Sphenoid Sinuses: No bony remodeling or destruction. There is minimal mucosal thickening seen within the right sphenoid sinus. Frontal Sinuses: No bony remodeling or destruction. Sinuses are clear. Ostiomeatal Complexes: Ostiomeatal complexes are patent. No Alondra cells. Miscellaneous: Visualized intra-orbital contents are normal. No renae bullosa or paradoxical turbinate curvature. There is minimal leftward nasal septal deviation. IMPRESSION: Paranasal sinus disease is seen, which is most prominent within the right maxillary sinus. Dictated by: Kristopher Alvarado M.D. on 03/29/2020 at 10:34 Approved by: Kristopher Alvarado M.D. on 03/29/2020 at 10:36
== END ==
PROVIDERS: Family Provider Family Medicine; PCP Family Medicine; Referring Provider Otolaryngology; Visit Provider Otolaryngology
DX: J32.8 Other chronic sinusitis (principal); J34.89 Other specified disorders of nose and nasal sinuses
CPT/HCPCS: 70486

== ENCOUNTER 2020-04-22 14:39 | Observation (INO) | payer OTHER, SELFPAY ==
[2018-12-26 11:45] VITALS: BMI 42.5
[2020-04-22] VITALS (7 sets, daily range): BP systolic 120–134; BP diastolic 72–81; PULSE 56–94; RESP 16–18; TEMP 36.4; O2SAT 93–99; BMI 42.0
[2020-04-22 15:50] LABS: Add Manual Diff / Slide Review NO; Basophils Absolute Auto 100 /uL (0-100); Basophils Percent Auto 0.9 % (0-2); Eosinophils Absolute Auto 300 /uL (0-450); Eosinophils Percent Auto 3.6 % (2-4); Hematocrit 39.5 % (41-53); Hemoglobin 13.6 g/dL (13.5-17.5); Lymphocytes Absolute Auto 1600 /uL (1100-4500); Lymphocytes Percent Auto 16.8 % (25-40); Mean Corpuscular HGB Conc 34.5 % (30-36); Mean Corpuscular Hemoglobin 35.1 PG (26-34); Mean Corpuscular Volume 101.7 fL (80-100); Monocytes Absolute Auto 700 /uL (0-900); Monocytes Percent Auto 7.8 % (3-14); Neutrophils Absolute Auto 6600 /uL (1500-7000); Neutrophils Percent Auto 70.9 % (50-75); Platelet Count 242 X10^3/uL (150-400); Red Blood Cell Count 3.88 X10^6/uL (4.5-5.9); Red Cell Distribution Width 13.9 % (11.6-14.8); White Blood Cell Count 9.3 X10^3/uL (4.5-11.0)
[2020-04-22 15:57] LABS: Prothrombin Time 11.7 SECONDS (10.1-12.7)
[2020-04-22 15:59] LABS: PTT Partial Thromboplastin Tim 31 SECONDS (26.4-36.2)
[2020-04-22 16:01] LABS: Alanine Aminotransferase 25 IU/L (<50); Albumin Globulin Ratio 1.2 (1.0-2.8); Alkaline Phosphatase 90 U/L (38-126); Aspartate Aminotransferase 31 IU/L (17-59); BUN Creatinine Ratio 18.2 (6-22); Bilirubin Total 1.1 mg/dL (0.2-1.3); Blood Urea Nitrogen 18 mg/dL (9-20); Calcium 9.4 mg/dL (8.4-10.2); Carbon Dioxide 22 mmol/L (22-32); Chloride 108 mmol/L (98-107); Estimated Glomerular Filt Rate > 60.0 mL/min (>60); Globulin 3.4 g/dL (1.7-4.1); Glucose 110 mg/dL (80-110); HEMOLYSIS 18 (0-50); Potassium 4.4 mmol/L (3.4-5.1); Sodium 138 mmol/L (137-145); Total Protein 7.4 g/dL (6.3-8.2)
--- NOTE | 2020-04-22 16:01 | PC.NURSE ---
bedside occult blood test performed by
--- NOTE | 2020-04-22 16:11 | ED.GIBLEED ---
HPI - GI Bleed General Chief complaint: GI Bleed Stated complaint: [facility]al Bleeding[facility] Time Seen by Provider: 04/22/20 15:30 Source: patient and family History of Present Illness HPI Narrative: Patient here with and friend. Seven episodes of black stools today. No syncope no chest pain or back pain no abdominal pain. No diaphoresis. No dyspnea. Is not on any blood thinners. Colonoscopy in the last [address] Baxter.. Known polyp. Has had occasional bleeding but nothing like today. No recent illness topical condition fever chills. Related Data Home Medications Medication Instructions Recorded Confirmed allopurinol 300 mg PO QPM 04/04/18 05/11/19 amlodipine 7.5 mg PO DAILY 03/31/19 05/11/19 Allergies Allergy/AdvReac Type Severity Reaction Status Date / Time Penicillins Allergy Pt unsure Verified 04/07/19 14:11 of reaction, has had in past w/no problem Review of Systems Review of Systems Narrative: GENERAL: Denies chills, fatigue, malaise, fever, sweats. HEENT: Denies sinus pain, ear pain, sore throat, difficulty swallowing, dizziness. RESPIRATORY: Denies dyspnea, cough, wheezing, hemoptysis, sputum. CARDIOVASCULAR: Denies chest pain, palpitations, orthopnea, edema, GASTROINTESTINAL: Denies nausea, vomiting, abdominal pain, diarrhea, constipation, complains of melena : Denies dysuria, frequency, incontinence, hematuria, urinary retention. MUSCULOSKELETAL: denies weakness, joint pain, or bony pain SKIN: Denies rash, skin lesions, or other NEUROLOGIC: Denies weakness, headache, numbness, change in speech, confusion, seizures, incoordination. PSYCHIATRIC: No concerning psychosocial issues. ROS Unobtainable: All systems reviewed & are unremarkable except as noted in HPI and below Patient History Medical History Arthritis (Acute) Asthma (Acute) Bigeminy (Acute) Diverticulitis (Acute) Diverticulosis (Acute) GERD (gastroesophageal reflux disease) (Acute) Gout (Acute) HTN (hypertension) (Acute) Kidney stones (Acute) Pneumonia (Acute) Post-polio syndrome (Acute) Rash (Acute) Surgical History History of arthroplasty of left shoulder (Acute 05/03/18) History of arthroplasty of right knee (Acute ~2014) History of arthroscopy of right shoulder (Acute) History of cholecystectomy (Acute) History of esophageal surgery (Acute) History of laparoscopic cholecystectomy (Resolved) History of vasectomy (Acute) Hx of tonsillectomy (Acute) Status post left unicompartmental knee replacement (Acute ~2013) Family History Mother Diabetes mellitus Sister Diabetes mellitus Social History household members: spouse Smoking Status: Never smoker alcohol intake: current Smoking Status: Never smoker alcohol intake frequency: a few times a month Substance Use Type: does not use Exam Narrative Exam Narrative: GENERAL: patient appears stated age. Well-nourished, well-developed patient, in no distress, not toxic HEAD: Atraumatic. Normocephalic. EYES: Pupils equal round and reactive. Extraocular motions intact. No scleral icterus. No injection or drainage. ENT: Nose without bleeding, purulent drainage. Throat without erythema, tonsillar hypertrophy or exudate. Airway patent. NECK: Trachea midline. Non tender CARDIOVASCULAR: Regular rate and rhythm without murmurs, gallops, or rubs. RESPIRATORY: Clear to auscultation. Breath sounds equal bilaterally. No wheezes, rales, or rhonchi. GASTROINTESTINAL: Abdomen soft, non-tender, nondistended. Guaiac positive on rectal exam. There is dark and bright red blood on glove. EXTREMITIES: No edema or joint tenderness. BACK: Nontender without deformity or crepitance. No flank tenderness. NEURO: AOx3. SKIN: No rash or erythema of visible areas PSYCH: Not anxious, is cooperative Initial Vital Signs Initial Vital Signs: Vital Signs Temperature 97.6 F 04/22/20 14:51 Pulse Rate 89 04/22/20 14:51 Respiratory Rate 16 04/22/20 14:51 Blood Pressure 127/81 04/22/20 14:51 Pulse Oximetry 97 04/22/20 14:51 Course Course Course Narrative: Patient hemoglobin stable at this time however may drop once bleeding settles out. Will need to admit for observation Decision to Admit Date: 04/22/20 Decision to Admit time: 16:19 Orders Ordered: Acetaminophen (Tylenol) 650 mg PO Q6HR PRN PRN Reason: Fever/Mild Pain (1-3) Lactated Ringer's (Lactated Ringers) 1,000 mls @ 125 mls/hr IV CONT [facility] Last Admin: 04/23/20 04:58 Dose: 125 mls/hr Documented by: Infusion: 04/23/20 04:58 Dose: 125 mls/hr Documented by: Admin: 04/22/20 18:29 Dose: 125 mls/hr Documented by: ISMAEL Ciprofloxacin (Cipro) 400 mg in 200 mls @ 200 mls/hr IV Q12H [facility] Last Infusion: 04/23/20 02:33 Dose: 0 mls/hr Documented by: Admin: 04/23/20 01:21 Dose: 200 mls/hr Documented by: EBONY Metronidazole (Flagyl) 500 mg in 100 mls @ 100 mls/hr IV Q6H [facility] Last Admin: 04/23/20 08:17 Dose: 100 mls/hr Documented by: QUINCY Morphine Sulfate (Morphine) 2 mg IV Q4HR PRN PRN Reason: Pain, Moderate (4-6) Naloxone HCl (Narcan) 0.2 mg IV Q2MIN PRN PRN Reason: Opiate Reversal Naloxone HCl (Narcan) 0.2 mg IV Q2MIN PRN PRN Reason: Opiate Reversal Ondansetron HCl (Zofran) 4 mg IV Q8HR PRN PRN Reason: Nausea And Vomiting Discontinued Medications Sodium Chloride (Normal Saline 0.9%) 500 mls @ 1,000 mls/hr IV BOLUS ONE Stop: 04/22/20 16:52 Last Admin: 04/22/20 17:30 Dose: 1,000 mls/hr Documented by: SheridanZODANNY Metronidazole (Flagyl) 500 mg in 100 mls @ 100 mls/hr IV Q6H [facility] Last Admin: 04/23/20 02:34 Dose: 100 mls/hr Documented by: EBONY Polyethylene Glycol/Electrolytes (Golytely Solution) 2,000 ml PO NOW ONE Stop: 04/23/20 05:32 Last Admin: 04/23/20 05:36 Dose: 2,000 ml Documented by: EBONY Polyethylene Glycol/Electrolytes (Golytely Solution) 2,000 ml PO 2000 ONE Stop: 04/22/20 20:01 Polyethylene Glycol/Electrolytes (Golytely Solution) 2,000 ml PO 0500 ONE Stop: 04/23/20 05:01 Last Admin: 04/23/20 05:09 Dose: 2,000 ml Documented by: EBONY Reevaluation(s) Reevaluation #1: No distress at this time. Vital signs stable Time: 16:19 Consultations Consultation #1: Spoke with patient's surgeon dr baxter... Keep NPO. Get CT angiogram abdomen pelvis. Might be diverticular bleed. Admit to hospitalist. He will see patient and likely due bowel prep and possible scope in the morning Time: 16:19 Consultation #2: Spoke with hospitalist Dr. Azevedo, will admit observation telemetry Time: 17:05 Vital Signs Vital signs: Vital Signs - 8 hr 04/22/20 14:51 04/22/20 15:54 04/22/20 16:00 Temperature 97.6 F Pulse Rate 89 94 H 89 Respiratory Rate 16 17 Blood Pressure 127/81 Pulse Oximetry 97 93 94 MDM - GI Bleed Differential Diagnosis Differential diagnosis: Likely Lower gastrointestinal hemorrhage Lab Data Attestation: I reviewed the patient's lab results. Result diagrams: 04/23/20 05:49 04/23/20 05:49 Labs: Lab Results 04/22/20 04/22/20 04/22/20 Range/Units 15:40 15:40 15:40 WBC 9.3 (4.5-11.0) X10^3/uL RBC 3.88 L (4.5-5.9) X10^6/uL Hgb 13.6 (13.5-17.5) g/dL Hct 39.5 L (41-53) % MCV 101.7 H (80-100) fL MCH 35.1 H (26-34) PG MCHC 34.5 (30-36) % RDW 13.9 (11.6-14.8) % Plt Count 242 (150-400) X10^3/uL Neut % (Auto) 70.9 (50-75) % Lymph % (Auto) 16.8 L (25-40) % Caswell % (Auto) 7.8 (3-14) % Eos % (Auto) 3.6 (2-4) % Baso % (Auto) 0.9 (0-2) % Neut # (Auto) 6600 (1045-6974) /uL Lymph # (Auto) 1600 (5075-6876) /uL Caswell # (Auto) 700 (0-900) /uL Eos # (Auto) 300 (0-450) /uL Baso # (Auto) 100 (0-100) /uL PT 11.7 (10.1-12.7) SECONDS INR 1.0 (0.9-1.3) APTT 31 (26.4-36.2) SECONDS Sodium 138 (137-145) mmol/L Potassium 4.4 (3.4-5.1) mmol/L Chloride 108 H (98-107) mmol/L Carbon Dioxide 22 (22-32) mmol/L BUN 18 (9-20) mg/dL Creatinine 0.99 (0.66-1.25) mg/dL Estimated GFR > 60.0 (>60) mL/min BUN/Creatinine Ratio 18.2 (6-22) Glucose 110 (80-110) mg/dL Calcium 9.4 (8.4-10.2) mg/dL Total Bilirubin 1.1 (0.2-1.3) mg/dL AST 31 (17-59) IU/L ALT 25 (<50) IU/L Alkaline Phosphatase 90 (38-126) U/L Total Protein 7.4 (6.3-8.2) g/dL Albumin 4.0 (3.5-5.0) g/dL Globulin 3.4 (1.7-4.1) g/dL Albumin/Globulin Ratio 1.2 (1.0-2.8) COVID-19 PCR (Negative) Blood Type Antibody Screen 04/22/20 04/22/20 Range/Units 15:40 16:17 WBC (4.5-11.0) X10^3/uL RBC (4.5-5.9) X10^6/uL Hgb (13.5-17.5) g/dL Hct (41-53) % MCV (80-100) fL MCH (26-34) PG MCHC (30-36) % RDW (11.6-14.8) % Plt Count (150-400) X10^3/uL Neut % (Auto) (50-75) % Lymph % (Auto) (25-40) % Caswell % (Auto) (3-14) % Eos % (Auto) (2-4) % Baso % (Auto) (0-2) % Neut # (Auto) (3906-8171) /uL Lymph # (Auto) (5287-1175) /uL Caswell # (Auto) (0-900) /uL Eos # (Auto) (0-450) /uL Baso # (Auto) (0-100) /uL PT (10.1-12.7) SECONDS INR (0.9-1.3) APTT (26.4-36.2) SECONDS Sodium (137-145) mmol/L Potassium (3.4-5.1) mmol/L Chloride (98-107) mmol/L Carbon Dioxide (22-32) mmol/L BUN (9-20) mg/dL Creatinine (0.66-1.25) mg/dL Estimated GFR (>60) mL/min BUN/Creatinine Ratio (6-22) Glucose (80-110) mg/dL Calcium (8.4-10.2) mg/dL Total Bilirubin (0.2-1.3) mg/dL AST (17-59) IU/L ALT (<50) IU/L Alkaline Phosphatase (38-126) U/L Total Protein (6.3-8.2) g/dL Albumin (3.5-5.0) g/dL Globulin (1.7-4.1) g/dL Albumin/Globulin Ratio (1.0-2.8) COVID-19 PCR Negative (Negative) Blood Type O Positive Antibody Screen Negative Point of Care Testing Stool Occult Blood Positive Imaging Data CT scan - abdomen/pelvis: Radiologist's Impression: [address] [address] [address] Scan Report Signed Patient: Milo Hastings [facility]#: [id number] : 5Acct:[id number] Age/Sex: 74 / MDate of Service: 04/22/20 Loc: ED Accession Number: [id number] Procedure: CT angio abdomen pelvis Ordering Provider: Dilip Rodriguez MD PROCEDURE: CT ANGIO ABDOMEN PELVIS INDICATIONS: gi bleed TECHNIQUE: After the administration of intravenous contrast, 2.5 mm thick sections acquired from the diaphragm to the symphysis. 10 mm maximum-intensity projection (MIP) reformats were then acquired. For radiation dose reduction, the following was used: automated exposure control. COMPARISON: [facility], [place], CT ABDOMEN/PELVIS WITHOUT CONTRAST, 12/05/2018, 20:11. FINDINGS: Image quality: Excellent. Aorta: Mesenteric arteries: Celiac trunk, superior and inferior mesenteric arteries appear patent. Right pelvic arteries: No areas of hemodynamically significant stenosis, vascular occlusion or aneurysmal dilation. No dissection. Mild scattered areas of calcification consistent with atherosclerotic disease. Left pelvic arteries: No areas of hemodynamically significant stenosis, vascular occlusion or aneurysmal dilation. No dissection. Mild scattered areas of calcification consistent with atherosclerotic disease. Extravascular soft tissues: Lung bases are clear. Heart size is normal. Liver is normal in size and enhancement. Gallbladder has been removed. Biliary system is non dilated. Pancreas enhances normally. Spleen is normal in size and enhancement. No adrenal nodules. Kidneys are are mildly atrophic without obstruction. Bilateral renal cysts are present. Non opacified bowel loops are nonobstructive. There is marked thickening and prominent diverticula with small areas of pericolonic stranding within the right lower quadrant in the region of the sigmoid colon. Questionable small scattered adjacent lymph nodes are noted. No free fluid or air. No retroperitoneal or mesenteric adenopathy. Multiple fat containing ventral hernias are present, unchanged. No suspicious bony lesions. No vertebral body compression fractures. IMPRESSION: 1. Thickening of the sigmoid colon with pericolonic inflammatory change and diverticula most suggestive of colitis secondary to diverticulitis. It is noted there are what appears to be small adjacent subcentimeter lymph nodes. While these could be reactive in nature, recommend interval follow-up either with endoscopy or CT to document resolution and exclude presence of underlying mass lesion. 2. No areas of hemodynamically significant stenosis, vascular occlusion, dissection or aneurysmal dilation. No contrast extravasation to indicate acute hemorrhage. Dictated by: Nancy Bar M.D. on 04/22/2020 at 16:40 Approved by: Nancy Bar M.D. on 04/22/2020 at 16:45 ECG Data Attestation: I personally reviewed and interpreted this ECG as follows: Interpretation: Sinus rhythm with frequent PVCs. No ST elevation or depression MDM Narrative Medical decision making narrative: Appropriate for admission observation of lower GI bleed. Early in changes for hemoglobin as onset just this morning. Discharge Plan Departure Patient Disposition: Admitted as Observation Clinical Impression: Lower gastrointestinal hemorrhage Discharge Date/Time: 04/22/20 18:05 Referrals: Rei Vega MD [Primary Care Provider] - Admit Date/Time: 04/22/20 17:44 Admit Provider: Ladi Azevedo
--- NOTE | 2020-04-22 16:17 | DI.CT.S_ITS ---
PROCEDURE: CT ANGIO ABDOMEN PELVIS INDICATIONS: gi bleed TECHNIQUE: After the administration of intravenous contrast, 2.5 mm thick sections acquired from the diaphragm to the symphysis. 10 mm maximum-intensity projection (MIP) reformats were then acquired. For radiation dose reduction, the following was used: automated exposure control. COMPARISON: [facility], , CT ABDOMEN/PELVIS WITHOUT CONTRAST, 12/05/2018, 20:11. FINDINGS: Image quality: Excellent. Aorta: Mesenteric arteries: Celiac trunk, superior and inferior mesenteric arteries appear patent. Right pelvic arteries: No areas of hemodynamically significant stenosis, vascular occlusion or aneurysmal dilation. No dissection. Mild scattered areas of calcification consistent with atherosclerotic disease. Left pelvic arteries: No areas of hemodynamically significant stenosis, vascular occlusion or aneurysmal dilation. No dissection. Mild scattered areas of calcification consistent with atherosclerotic disease. Extravascular soft tissues: Lung bases are clear. Heart size is normal. Liver is normal in size and enhancement. Gallbladder has been removed. Biliary system is non dilated. Pancreas enhances normally. Spleen is normal in size and enhancement. No adrenal nodules. Kidneys are are mildly atrophic without obstruction. Bilateral renal cysts are present. Non opacified bowel loops are nonobstructive. There is marked thickening and prominent diverticula with small areas of pericolonic stranding within the right lower quadrant in the region of the sigmoid colon. Questionable small scattered adjacent lymph nodes are noted. No free fluid or air. No retroperitoneal or mesenteric adenopathy. Multiple fat containing ventral hernias are present, unchanged. No suspicious bony lesions. No vertebral body compression fractures. IMPRESSION: 1. Thickening of the sigmoid colon with pericolonic inflammatory change and diverticula most suggestive of colitis secondary to diverticulitis. It is noted there are what appears to be small adjacent subcentimeter lymph nodes. While these could be reactive in nature, recommend interval follow-up either with endoscopy or CT to document resolution and exclude presence of underlying mass lesion. 2. No areas of hemodynamically significant stenosis, vascular occlusion, dissection or aneurysmal dilation. No contrast extravasation to indicate acute hemorrhage. Dictated by: Nancy Bar M.D. on 04/22/2020 at 16:40 Approved by: Nancy Bar M.D. on 04/22/2020 at 16:45
[2020-04-22] MEDS: SODIUM CHLORIDE 0.9% 500 ML 1000 ML IV (17:30)
--- NOTE | 2020-04-22 17:45 | PC.NURSE ---
SBAR TO ELIUD BHAT ON MED SURGE FLOOR
--- NOTE | 2020-04-22 17:58 | P.CONS_ITS ---
History of Present Illness Consult details Date Patient Seen: 04/22/20 Time Patient Seen: 17:00 Chief complaint: Rectal Bleeding, Sent From [facility] Reason for consult: GI bleed Requesting provider: Dilip Rodriguez Narrative: The patient is a gentleman who about 10 30 this morning began having bloody bowel movements. He has had 7 of them. This is a new occurrence for him. Of significance about 1 year ago he had a colonoscopy and was found to have a large polypoid lesion at 35 cm from the anal verge. This appeared to be an inflammatory polyp based on multiple biopsies on 2 different occasions. He is not having any pain. He was noted to have pandiverticulosis during that colonoscopy. Meds Home Medications and Allergies Home Medications Medication Instructions Recorded Confirmed Type allopurinol 300 mg PO QPM 04/04/18 05/11/19 History amlodipine 7.5 mg PO DAILY 03/31/19 05/11/19 History Allergies Allergy/AdvReac Type Severity Reaction Status Date / Time Penicillins Allergy Pt unsure Verified 04/07/19 14:11 of reaction, has had in past w/no problem Review of Systems Review of Systems Narrative: Patient denies pain in his eyes trouble swallowing cough cold or asthma. No chest pain or murmurs. 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 No abdominal pain. It has been eating fine. No weight loss. No seizures or blackouts. No anxiety or depression. Exam Vital Signs (past 8 hours): - 04/22/20 14:51 04/22/20 15:54 04/22/20 16:00 Temperature 97.6 F Pulse Rate 89 94 H 89 Respiratory Rate 16 17 Blood Pressure 127/81 Pulse Oximetry 97 93 94 Oxygen Delivery Method Room Air Narrative Exam Narrative: Cooperative gentleman no apparent distress. Eyes are nonicteric. Pupils equal round reactive to light. No nodes in the neck or supraclavicular areas. Trachea is midline mobile. Thyroid is not enlarged. Lungs are clear to auscultation without rales or rhonchi. Good effort. Heart regular rate and rhythm with a with a lot of irregularity which on the monitor appears to be PVCs. Otherwise sinus rhythm. No murmurs or gallops appreciated. His abdomen is protuberant but soft. There is no tenderness. Scars from prior operations noted. He has a diastasis recti. Alert and oriented x3. Speech rate and content are appropriate. Affect is appropriate. Objective Labs Result Diagrams: 04/22/20 15:40 04/22/20 15:40 Labs: Laboratory Results - last 24 hr 04/22/20 04/22/20 04/22/20 15:40 15:40 15:40 WBC 9.3 RBC 3.88 L Hgb 13.6 Hct 39.5 L MCV 101.7 H MCH 35.1 H MCHC 34.5 RDW 13.9 Plt Count 242 Neut % (Auto) 70.9 Lymph % (Auto) 16.8 L [place] % (Auto) 7.8 Eos % (Auto) 3.6 Baso % (Auto) 0.9 Neut # (Auto) 6600 Lymph # (Auto) 1600 [place] # (Auto) 700 Eos # (Auto) 300 Baso # (Auto) 100 PT 11.7 INR 1.0 APTT 31 Sodium 138 Potassium 4.4 Chloride 108 H Carbon Dioxide 22 BUN 18 Creatinine 0.99 Estimated GFR > 60.0 BUN/Creatinine Ratio 18.2 Glucose 110 Calcium 9.4 Total Bilirubin 1.1 AST 31 ALT 25 Alkaline Phosphatase 90 Total Protein 7.4 Albumin 4.0 Globulin 3.4 Albumin/Globulin Ratio 1.2 Blood Type Antibody Screen 04/22/20 15:40 WBC RBC Hgb Hct MCV MCH MCHC RDW Plt Count Neut % (Auto) Lymph % (Auto) [place] % (Auto) Eos % (Auto) Baso % (Auto) Neut # (Auto) Lymph # (Auto) [place] # (Auto) Eos # (Auto) Baso # (Auto) PT INR APTT Sodium Potassium Chloride Carbon Dioxide BUN Creatinine Estimated GFR BUN/Creatinine Ratio Glucose Calcium Total Bilirubin AST ALT Alkaline Phosphatase Total Protein Albumin Globulin Albumin/Globulin Ratio Blood Type O Positive Antibody Screen Negative Assessment & Plan Assessment & Plan narrative: Patient with gastrointestinal bleeding. CT scan reviewed. May be from colitis. No blush noted on the arterial phase of his CTs to suggest an active bleeding source at this time. Patient has extensive diverticulitis which may also be the source of his bleeding. His hematocrit has not dropped yet but I suspect it will with hydration. Bowel prep has been ordered will plan a colonoscopy tomorrow. I recommended 1 in 1 year to re-ev aluate due to his pathology and he is due now. COVID-19 is pending.
[2020-04-22] MEDS: LACTATED RINGERS 1,000 ML 125 ML IV (18:29)
[2020-04-22 18:47] LABS: COVID19 -Nasal RAPID Negative (Negative)
[2020-04-22 19:03] LABS: Bacteria Urine None Seen; RBC Urine None Seen (0-5/HPF); WBC Urine None Seen (0-5/HPF)
[2020-04-22 19:04] LABS: Appearance Urine UA CLEAR; Bilirubin Urine UA NEGATIVE (NEGATIVE); Color Urine UA YELLOW; Glucose Urine UA NEGATIVE (Negative); Ketones Urine UA NEGATIVE (NEGATIVE); Leukocyte Esterase Urine UA NEGATIVE (NEGATIVE); Nitrite Urine UA NEGATIVE (Negative); Occult Blood Urine UA NEGATIVE (Negative); Protein Urine UA NEGATIVE (Negative); Specific Gravity Urine UA <=1.005 (1.000-1.035); Urobilinogen Urine UA 0.2 E.U./dL (0.2); pH Urine UA 5.5 (4.5-8.0)
[2020-04-22 19:12] LABS: Culture Indicated Urine Cult Not Indicated; Urine Comments Microscopic Normal
[2020-04-22 19:25] LABS: Add Manual Diff / Slide Review NO; Basophils Absolute Auto 100 /uL (0-100); Basophils Percent Auto 0.6 % (0-2); Eosinophils Absolute Auto 300 /uL (0-450); Eosinophils Percent Auto 3.4 % (2-4); Hematocrit 36.1 % (41-53); Hemoglobin 12.3 g/dL (13.5-17.5); Lymphocytes Absolute Auto 1800 /uL (1100-4500); Lymphocytes Percent Auto 19.3 % (25-40); Mean Corpuscular HGB Conc 34.2 % (30-36); Mean Corpuscular Hemoglobin 35.2 PG (26-34); Monocytes Absolute Auto 700 /uL (0-900); Neutrophils Absolute Auto 6400 /uL (1500-7000); Neutrophils Percent Auto 68.7 % (50-75); Platelet Count 203 X10^3/uL (150-400); Red Blood Cell Count 3.51 X10^6/uL (4.5-5.9); Red Cell Distribution Width 13.8 % (11.6-14.8); White Blood Cell Count 9.3 X10^3/uL (4.5-11.0)
--- NOTE | 2020-04-22 22:44 | PC.NURSE ---
no pain, no n/v. no sob. no chest pain. telemetry. had 3 beats of vtach reported by ICU-RN. provider aware. SBA to the BR. had two immanuel red blood bowel movements. IVF. call light in reach.
[2020-04-23] VITALS (15 sets, daily range): BP systolic 109–135; BP diastolic 55–86; PULSE 55–79; RESP 13–19; TEMP 35.9–36.9; O2SAT 93–98; BMI 42.0
--- NOTE | 2020-04-23 | PATH_ITS ---
[facility] Accession Number: [id number] . 01 Material submitted: . PART A: colon - BIOPSY TRANSVERSE COLON PART B: colon - BIOPSY 110 CM PART C: colon - BIOPSY ULCERATIVE LESION 55CM PART D: colon - BIOPSY LESION AT 50CM PART E: colon - BIOPSY POLYP AT 30CM . 01 Clinical history: . [facility] . 02 Diagnosis: A. Transverse Colon, Biopsy: Tubular adenoma. . B. Colon, 110 cm, Biopsy: Tubular adenoma. . C. Ulcerative Lesion 55 cm, Biopsy: Inflammatory polyp. . D. Biopsy Lesion at 50 cm: Colonic mucosa with mucosal congestion without active inflammation or atrophy. Please see comment. Negative for dysplasia or malignancy. . E. Polyp at 30 cm, Biopsy: Hyperplastic polyp. [facility] 04/25/2020 1530 Local . 02 Comment: D. The tissue biopsied at 50 cm shows mucosal congestion without active inflammation or atrophy. The morphologic appearance raises the consideration of procedure-related changes/recent trauma or early ischemia-type changes. Clinical correlation recommended. . 02 Electronically signed: . Ely Hines MD, Pathologist NPI- [id number] . 01 Gross description: . Part A: BIOPSY TRANSVERSE COLON: Received in formalin are 2 fragment(s) of [place], soft tissue measuring 0.4 x 0.4 x 0.2 cm to 0.3 x 0.3 x 0.2 cm submitted entirely in 1 cassette(s) Part B: BIOPSY 110 CM: Received in formalin are 2 fragment(s) of [place], soft tissue measuring 0.4 x 0.2 x 0.2 cm to 0.3 x 0.3 x 0.2 cm submitted entirely in 1 cassette(s) Part C: BIOPSY ULCERATIVE LESION 55CM: Received in formalin are 4 fragment(s) of [place], soft tissue measuring 0.7 x 0.7 x 0.6 cm to 0.3 x 0.1 x 0.1 cm submitted entirely in 1 cassette(s) Part D: BIOPSY LESION AT 50CM: Received in formalin are 3 fragment(s) of [place], soft tissue measuring 0.3 x 0.3 x 0.2 cm to 0.2 x 0.2 x 0.2 cm submitted entirely in 1 cassette(s) Part E: BIOPSY POLYP AT 30CM: Received in formalin are 3 fragment(s) of [place], soft tissue measuring 0.3 x 0.2 x 0.1 cm to 0.2 x 0.2 x 0.1 cm submitted entirely in 1 cassette(s) /KIRK 04/24/2020 0158 Local . 02 Pathologist provided ICD-10: D12.3, D12.6 . 02 CPT . 616458, 486564, 943558, 643031, 854072 Performed at: 01 [facility] [place] [address] [id number] MD Curry Spangler MD Phone: [phone] Performed at: 02 [facility] [address] [place], [place] [id number] MD Ely Hines MD Phone: [phone]
--- NOTE | 2020-04-23 00:35 | P.HP_ITS ---
History of Present Illness History of Present Illness Date Patient Seen: 04/22/20 Time Patient Seen: 21:15 Chief complaint: Rectal Bleeding, Sent From [facility] Narrative: Milo Hastings is a pleasant 74-year-old male with a history of hypertension and gout who presents with blood per rectum. He has a history of having had multiple scopes in the past including a finding of a a large polypoid lesion at 35 cm from the anal verge during his last colonoscopy done by Dr. Baxter. He denies fever sweats or chills, chest pain, shortness of breath, dysuria, he does have lower bilateral abdomino/pelvic pain, had 7 bloody bowel movements today, denies any numbing or tingling of his upper lower extremities. CT ordered by the ED included findings of ?Thickening of the sigmoid colon with pericolonic inflammatory change and diverticula most suggestive of colitis secondary to diverticulitis.? Patient's temperature was 97.6?, blood pressure 120/75, heart rate 56, respiratory rate of 18, oxygen saturation of 99% on room air, he weighs 129.2 kg with a BMI of 42. Patient History Medical History Arthritis (Acute) Asthma (Acute) Bigeminy (Acute) Diverticulitis (Acute) Diverticulosis (Acute) GERD (gastroesophageal reflux disease) (Acute) Gout (Acute) HTN (hypertension) (Acute) Kidney stones (Acute) Pneumonia (Acute) Post-polio syndrome (Acute) Rash (Acute) Surgical History History of arthroplasty of left shoulder (Acute 05/03/18) History of arthroplasty of right knee (Acute ~2014) History of arthroscopy of right shoulder (Acute) History of cholecystectomy (Acute) History of esophageal surgery (Acute) History of laparoscopic cholecystectomy (Resolved) History of vasectomy (Acute) Hx of tonsillectomy (Acute) Status post left unicompartmental knee replacement (Acute ~2013) Family & Social History Family History Mother Diabetes mellitus Sister Diabetes mellitus Social History: household members spouse Prior Living Arrangements House Safety & Behavioral: Feels Safe in Current Yes Environment Been Physically Hurt or No Threatened By a Person Suicidal Ideation Description None Suicide Plan Description No Plan Tobacco & Substance use: Smoking Status Never smoker alcohol intake current alcohol intake frequency a few times a month Substance Use Type does not use Meds Home Medications and Allergies Home Medications Medication Instructions Recorded Confirmed Type allopurinol 300 mg PO QPM 04/04/18 05/11/19 History amlodipine 7.5 mg PO DAILY 03/31/19 05/11/19 History Allergies Allergy/AdvReac Type Severity Reaction Status Date / Time Penicillins Allergy Pt unsure Verified 04/07/19 14:11 of reaction, has had in past w/no problem Review of Systems Review of Systems ROS: Yes All systems reviewed with the patient and are negative except as otherwise documented Exam Vital Signs (past 8 hours): - 04/22/20 17:30 04/22/20 18:02 04/22/20 19:55 Temperature 97.5 F L 97.6 F Pulse Rate 90 70 56 L Respiratory Rate 18 18 18 Blood Pressure 121/73 134/72 120/75 Pulse Oximetry 95 95 97 04/22/20 23:20 Temperature Pulse Rate Respiratory Rate Blood Pressure Pulse Oximetry 99 Oxygen Delivery Method Room Air Oxygen Flow Rate 0 Objective Labs Result Diagrams: 04/22/20 19:15 04/22/20 15:40 Labs: Laboratory Results - last 24 hr 04/22/20 04/22/20 04/22/20 15:40 15:40 15:40 WBC 9.3 RBC 3.88 L Hgb 13.6 Hct 39.5 L MCV 101.7 H MCH 35.1 H MCHC 34.5 RDW 13.9 Plt Count 242 Neut % (Auto) 70.9 Lymph % (Auto) 16.8 L [place] % (Auto) 7.8 Eos % (Auto) 3.6 Baso % (Auto) 0.9 Neut # (Auto) 6600 Lymph # (Auto) 1600 [place] # (Auto) 700 Eos # (Auto) 300 Baso # (Auto) 100 PT 11.7 INR 1.0 APTT 31 Sodium 138 Potassium 4.4 Chloride 108 H Carbon Dioxide 22 BUN 18 Creatinine 0.99 Estimated GFR > 60.0 BUN/Creatinine Ratio 18.2 Glucose 110 Calcium 9.4 Total Bilirubin 1.1 AST 31 ALT 25 Alkaline Phosphatase 90 Total Protein 7.4 Albumin 4.0 Globulin 3.4 Albumin/Globulin Ratio 1.2 Urine Color Urine Appearance Urine pH Ur Specific [place] Urine Protein Urine Glucose (UA) Urine Ketones Urine Occult Blood Urine Nitrate Urine Bilirubin Urine Urobilinogen Ur Leukocyte Esterase Urine RBC Urine WBC Urine Bacteria Ur Culture Indicated? Micro UA Comment COVID-19 PCR Blood Type Antibody Screen 04/22/20 04/22/20 04/22/20 15:40 16:17 18:52 WBC RBC Hgb Hct MCV MCH MCHC RDW Plt Count Neut % (Auto) Lymph % (Auto) [place] % (Auto) Eos % (Auto) Baso % (Auto) Neut # (Auto) Lymph # (Auto) [place] # (Auto) Eos # (Auto) Baso # (Auto) PT INR APTT Sodium Potassium Chloride Carbon Dioxide BUN Creatinine Estimated GFR BUN/Creatinine Ratio Glucose Calcium Total Bilirubin AST ALT Alkaline Phosphatase Total Protein Albumin Globulin Albumin/Globulin Ratio Urine Color Yellow Urine Appearance Clear Urine pH 5.5 Ur Specific [place] <=1.005 Urine Protein Negative Urine Glucose (UA) Negative Urine Ketones Negative Urine Occult Blood Negative Urine Nitrate Negative Urine Bilirubin Negative Urine Urobilinogen 0.2 Ur Leukocyte Esterase Negative Urine RBC None seen Urine WBC None seen Urine Bacteria None seen Ur Culture Indicated? Cult not indicated Micro UA Comment Microscopic normal COVID-19 PCR Negative Blood Type O Positive Antibody Screen Negative 04/22/20 19:15 WBC 9.3 RBC 3.51 L Hgb 12.3 L Hct 36.1 L MCV 103.0 H MCH 35.2 H MCHC 34.2 RDW 13.8 Plt Count 203 Neut % (Auto) 68.7 Lymph % (Auto) 19.3 L [place] % (Auto) 8.0 Eos % (Auto) 3.4 Baso % (Auto) 0.6 Neut # (Auto) 6400 Lymph # (Auto) 1800 [place] # (Auto) 700 Eos # (Auto) 300 Baso # (Auto) 100 PT INR APTT Sodium Potassium Chloride Carbon Dioxide BUN Creatinine Estimated GFR BUN/Creatinine Ratio Glucose Calcium Total Bilirubin AST ALT Alkaline Phosphatase Total Protein Albumin Globulin Albumin/Globulin Ratio Urine Color Urine Appearance Urine pH Ur Specific [place] Urine Protein Urine Glucose (UA) Urine Ketones Urine Occult Blood Urine Nitrate Urine Bilirubin Urine Urobilinogen Ur Leukocyte Esterase Urine RBC Urine WBC Urine Bacteria Ur Culture Indicated? Micro UA Comment COVID-19 PCR Blood Type Antibody Screen Assessment & Plan Assessment & Plan narrative: Milo Hastings is a 74-year-old male with a current diagnosis of hypertension who will be admitted for further management and evaluation of bloody stools. After review of the CT scan report I will initiate treatment for acute diverticulitis. Hematochezia as a likely secondary to acute diverticulitis, acute, present on admission -he started on IV Cipro 400 mg twice daily and IV metronidazole 500 mg q.i.d. -NPO after midnight and will start bowel prep tonight -Dr. Baxter consulting, appreciated -patient has been typed and screened Essential hypertension, chronic and well controlled -he will be continued on his home dose of amlodipine 7.5 mg p.o. at bedtime Consults: Dr. Baxter, consult and involvement is appreciated. Patient is admitted under inpatient status with expected length of stay greater than 2 midnights due to severity of presenting symptoms, risk of adverse event, and complexity of treatment plan. FEN: IV saline lock, NPO after midnight, BMP and magnesium in the am. VTE prophylaxis: Bilateral SCDs Dispo: probable discharge to home Code Status: Full code as discussed with[] patient [] surrogate COVID-19 COVID-19 status: Negative Result date/Date tested (Pos, Neg/Pending): 04/22/20 Quality VTE Deep Vein Thrombosis/Pulmonary Embolism Present on Admission: No
[2020-04-23] MEDS: CIPROFLOXACIN 400 MG/200 ML PIGGYBACK 200 MG IV ×2 (01:21→13:48)
[2020-04-23 01:23] LABS: Magnesium 1.9 mg/dL (1.6-2.3)
[2020-04-23] MEDS: metroNIDAZOLE 500 MG/100 ML PIGGYBACK 100 MG IV ×3 (02:34→14:59)
--- NOTE | 2020-04-23 03:06 | PC.NURSE ---
2344 Patient is alert and oriented but very [place]; has bilateral hearing aids which are out for the night. Breath sounds CTA with RA sat of 93-99%. HRR; telemetry reading at 0000 was SR w/1st degree AVB and frequency PVC's. Denies nausea. BT hypoactive; had loose bloody stools prior to admit and on evening shift but up to bathroom at this time and did not have any BM. Voiding; denies dysuria, frequency or urgency. Is able to turn himself in bed. Up to bathroom with SBA; is steady and denies any dizziness/lightheadedness. Bruises noted on left upper thigh. Denies pain. Wearing bilateral calf SCD's. NPO after 0000 with plan for colonoscopy in a.m. rooming in. Fall risk score is low; instructed to call for assistance when getting out of bed and both he and verbalize understanding.
[2020-04-23] MEDS: PEG3350/SOD SULF,BICARB,CL/KCL 4,000 ML SOLUTION 2000 ML PO ×3 (04:58→05:36)
[2020-04-23] MEDS: LACTATED RINGERS 1,000 ML 125 ML IV ×2 (04:58→10:29)
[2020-04-23 06:03] LABS: Add Manual Diff / Slide Review NO; Basophils Absolute Auto 100 /uL (0-100); Basophils Percent Auto 0.8 % (0-2); Eosinophils Absolute Auto 400 /uL (0-450); Eosinophils Percent Auto 4.7 % (2-4); Hematocrit 35.7 % (41-53); Hemoglobin 12.2 g/dL (13.5-17.5); Lymphocytes Absolute Auto 2000 /uL (1100-4500); Lymphocytes Percent Auto 22.9 % (25-40); Mean Corpuscular HGB Conc 34.3 % (30-36); Monocytes Absolute Auto 800 /uL (0-900); Neutrophils Absolute Auto 5400 /uL (1500-7000); Neutrophils Percent Auto 62.6 % (50-75); Platelet Count 221 X10^3/uL (150-400); Red Cell Distribution Width 13.9 % (11.6-14.8); White Blood Cell Count 8.6 X10^3/uL (4.5-11.0)
[2020-04-23 06:17] LABS: BUN Creatinine Ratio 14.4 (6-22); Blood Urea Nitrogen 13 mg/dL (9-20); Carbon Dioxide 25 mmol/L (22-32); Chloride 107 mmol/L (98-107); Estimated Glomerular Filt Rate > 60.0 mL/min (>60); Glucose 117 mg/dL (80-110); HEMOLYSIS < 15 (0-50); Potassium 4.2 mmol/L (3.4-5.1); Sodium 136 mmol/L (137-145)
--- NOTE | 2020-04-23 10:55 | PC.NURSE ---
Patient went down for scope at 10:15. Patient having immanuel red blood in stools, Golytely given this AM and patient is down for procedure. Bowel tones active, VSS, patient denies pain.
--- NOTE | 2020-04-23 11:17 | PM.PREOP ---
Pre-operative Note COVID-19 COVID-19 status: Negative Result date/Date tested (Pos, Neg/Pending): 04/22/20 Interval Note History & Physical reviewed/Exam performed by Physician: Yes Changes to H&P: No H&P completed within 30 days and has changed as indicated here:: Patient did have a bowel prep overnight ASA Class (for procedural sedation): II
[2020-04-23] MEDS: MIDAZOLAM 5 MG/5 ML VIAL IV ×5 (11:29→12:06)
[2020-04-23] MEDS: fentaNYL 250 MCG/5 ML INJ IV ×4 (11:29→11:48)
--- NOTE | 2020-04-23 12:39 | P.OP.ENDO_ITS ---
Operative Date/Time/Diagnoses Date of procedure: 04/23/20 Time of procedure: 12:39 Pre-op diagnosis: Lower GI bleed Post-op diagnosis: same (Extensive pandiverticulosis. Multiple polyps including Inflammatory polyp at about 55 cm with a possible additional inflammatory polyp just distal at 50 cm from the anal verge.) Procedure & Clinicians Study performed: Colonoscopy with hot snare polypectomy and cold biopsy. Same procedure as scheduled: Yes Indications: Lower GI bleed Surgeon: Mayank Baxter Procedure Notes SCOAP/Timeout: Performed Procedure in detail: The patient was placed in the left lateral decubitus posit ion and underwent IV sedation directed by the surgeon consisting of fentanyl and Versed. Digital exam was unremarkable. I could not feels prostate well.. The scope was inserted and advanced through the rectum into the sigmoid, descending, transverse, and ascending colon. I had a great deal of difficulty getting through the sigmoid due to sharp tortuosity and narrowing and extensive diverticulosis. This was especially true as I approached the inflammatory lesion seen on prior scoping. I noted a tattoo placed at the last colonoscopy near the inflammatory lesion going in. I decided to work on it coming out. A polyp was noted in the transverse colon on the way in which was biopsied and appeared to be completely removed. I reach the cecum identified by the ileocecal valve and the appendiceal opening. There was a lesion near it that I biopsied and removed. The scope was gradually brought out. I ultimately reach the inflammatory lesion and snared a large piece of it. I attempted to remove additional pieces but simply could not get the snare to make purchase on it to remove the entire thing. After spending about 25 minutes trying to successfully do this, the scope slipped beyond it and I was having difficulty once again making my way to it. The there was a lesion just distal to the inflammatory 1 which I labeled 50 cm. I biopsied this as I was not sure was truly a different lesion or I had just irritated this area going in an out over and over again. It was clearly separate however from the inflammatory lesion I had snared a piece of. Nothing was bleeding at the time of the scope. There was no bleeding when I snared the large piece nor smaller pieces that I was able to successfully snare. An additional Polyp was found at 30 cm from the anal verge which was b iopsied and completely removed.. The scope was slowly brought through the anus. No lesions were seen. The scope was removed and the patient tolerated the procedure well. The prep was very good. Scope withdrawal time: Over 8 minutes(total time40) Sedation minutes: 67 Findings: diverticulosis Specimen(s): other (Polyps and inflammatory lesion) Complications: none Post-procedure Recommendations: Other recommendation (Will refer for additional treatment depending on pathology) Follow up: weeks (One) Disposition: PACU
--- NOTE | 2020-04-23 14:39 | CM.DANOTE ---
DCP assessment: EMR reviewed: Patient is a 74 yr old male who was admitted for bloody stools. Patient is having a scope done today to help determine cause. PCP is Bella. CM/Rn met with patient at the bed side and explained role. Patient was alert and oriented at time of CM/Rn visit. Patient currently lives with his harika. Patient is independent with all ADLS and drives at baseline. Currently does not use DME.. I: Medicare and AARP Plan: D/C home when medically stable. No needs noted at this time. Cm department will follow to assist with any new D/c planning needs that may arise. Shannon Bear RN Discharge Planning/Care Management CM Discharge Assessment Start: 04/23/20 14:36 Freq: Status: Active Protocol: Document 04/23/20 14:36 HS (Rec: 04/23/20 14:39 HS [id number]) Discharge Planning Assessment Assigned Pasting Machine Operator Shannon Bear RN DPOA/Assigned Designee Name Harika De La Cruz () Contact Information [phone] Advance Directives? Yes Advance Directives on File No History Provided By Patient,Family Member,Medical Record Has Patient been admitted in last 30 No days? Prior Living Arrangements House Household Members spouse Type of transporation used prior to Drives own vehicle admit Independent with ADL's Yes Is patient alert and oriented? Yes Caregiver for Another No Barriers to Discharge No Comment home with Harika driving. Discharge Plan Home Referrals Initiated None needed Whiteboard Updated in Patient Room with Yes name and ext. # of Pasting Machine Operator Review Status In Process Next Review Type Continued Stay Review
[2020-04-23] MEDS: AMLODIPINE 2.5 MG TABLET 7.5 MG PO (14:50)
--- NOTE | 2020-04-23 14:59 | PM.DS.1 ---
History of Present Illness History of Present Illness Chief complaint: [facility] Ble[facility] Narrative: Milo Hastings is a pleasant 74-year-old male with a history of hypertension and gout who presents with blood per rectum. He has a history of having had multiple scopes in the past including a finding of a a large polypoid lesion at 35 cm from the anal verge during his last colonoscopy done by Dr. Baxter. He denies fever sweats or chills, chest pain, shortness of breath, dysuria, he does have lower bilateral abdomino/pelvic pain, had 7 bloody bowel movements today, denies any numbing or tingling of his upper lower extremities. CT ordered by the ED included findings of ?Thickening of the sigmoid colon with pericolonic inflammatory change and diverticula most suggestive of colitis secondary to diverticulitis.? Patient's temperature was 97.6?, blood pressure 120/75, heart rate 56, respiratory rate of 18, oxygen saturation of 99% on room air, he weighs 129.2 kg with a BMI of 42. Discharge Providers Provider Date of admission: 04/22/20 17:44 Discharge Date: 04/23/20 Primary care physician: Rei Vega MD Consults: 04/22/20 20:11 Consult to Physician Routine Comment: Consulting Provider: Mayank Baxter Reason for consultation: Suspected Lower GI bleed Has provider been notified: Yes Discharge provider: Jono Ortiz MD Summary Hospital Course Discharge Diagnosis: 1. Acute lower GI bleed 2. Extensive colon diverticulosis 3. Inflammatory colon polyp Hospital Course: Patient was admitted due to acute lower GI bleed with risk of progression. Dr. Baxter was consulted for surgery and performed colonoscopy which showed extensive diverticulosis and a inflammatory polyp at 55 cm. Pathology pending. Patient has not had further GI bleed and tolerating diet. His CT scan showed some inflammatory changes in the colon but clinically he has no other indication of acute diverticulitis such is abdominal pain, fever, leukocytosis. He will follow-up with Dr. Baxter in 1 week to review pathology results. Needs repeat colonoscopy in a year. Advise high-fiber diet. Status at Discharge Cognitive/behavioral status at discharge: oriented Functional status at discharge: independent ambulation Overall status at discharge: patient is back to baseline Time Spent with Patient Time spent: Less than 30 minutes Exam Vital Signs (past 8 hours): - 04/23/20 07:00 04/23/20 09:00 04/23/20 12:46 Temperature 97.3 F L 97.2 F L Pulse Rate 79 67 Respiratory Rate 16 19 Blood Pressure 135/64 123/78 Pulse Oximetry 95 95 94 04/23/20 12:48 04/23/20 12:50 04/23/20 12:56 Temperature Pulse Rate 69 69 73 Respiratory Rate 16 18 13 Blood Pressure 112/73 126/71 116/69 Pulse Oximetry 93 93 94 04/23/20 13:00 04/23/20 13:11 04/23/20 13:35 Temperature 96.6 F L 97.7 F Pulse Rate 76 73 63 Respiratory Rate 17 16 16 Blood Pressure 118/67 118/67 120/86 Pulse Oximetry 95 93 95 04/23/20 14:13 Temperature 97.8 F Pulse Rate 62 Respiratory Rate 16 Blood Pressure 112/70 Pulse Oximetry 95 Oxygen Delivery Method Room Air Oxygen Flow Rate 0 Objective Labs Result Diagrams: 04/23/20 05:49 04/23/20 05:49 Labs: Laboratory Results - last 24 hr 04/22/20 04/22/20 04/22/20 15:40 15:40 15:40 WBC 9.3 RBC 3.88 L Hgb 13.6 Hct 39.5 L MCV 101.7 H MCH 35.1 H MCHC 34.5 RDW 13.9 Plt Count 242 Neut % (Auto) 70.9 Lymph % (Auto) 16.8 L Rowan % (Auto) 7.8 Eos % (Auto) 3.6 Baso % (Auto) 0.9 Neut # (Auto) 6600 Lymph # (Auto) 1600 Rowan # (Auto) 700 Eos # (Auto) 300 Baso # (Auto) 100 PT 11.7 INR 1.0 APTT 31 Sodium 138 Potassium 4.4 Chloride 108 H Carbon Dioxide 22 BUN 18 Creatinine 0.99 Estimated GFR > 60.0 BUN/Creatinine Ratio 18.2 Glucose 110 Calcium 9.4 Magnesium Total Bilirubin 1.1 AST 31 ALT 25 Alkaline Phosphatase 90 Total Protein 7.4 Albumin 4.0 Globulin 3.4 Albumin/Globulin Ratio 1.2 Urine Color Urine Appearance Urine pH Ur Specific [place] Urine Protein Urine Glucose (UA) Urine Ketones Urine Occult Blood Urine Nitrate Urine Bilirubin Urine Urobilinogen Ur Leukocyte Esterase Urine RBC Urine WBC Urine Bacteria Ur Culture Indicated? Micro UA Comment COVID-19 PCR Blood Type Antibody Screen 04/22/20 04/22/20 04/22/20 15:40 16:17 18:52 WBC RBC Hgb Hct MCV MCH MCHC RDW Plt Count Neut % (Auto) Lymph % (Auto) Rowan % (Auto) Eos % (Auto) Baso % (Auto) Neut # (Auto) Lymph # (Auto) Rowan # (Auto) Eos # (Auto) Baso # (Auto) PT INR APTT Sodium Potassium Chloride Carbon Dioxide BUN Creatinine Estimated GFR BUN/Creatinine Ratio Glucose Calcium Magnesium Total Bilirubin AST ALT Alkaline Phosphatase Total Protein Albumin Globulin Albumin/Globulin Ratio Urine Color Yellow Urine Appearance Clear Urine pH 5.5 Ur Specific [place] <=1.005 Urine Protein Negative Urine Glucose (UA) Negative Urine Ketones Negative Urine Occult Blood Negative Urine Nitrate Negative Urine Bilirubin Negative Urine Urobilinogen 0.2 Ur Leukocyte Esterase Negative Urine RBC None seen Urine WBC None seen Urine Bacteria None seen Ur Culture Indicated? Cult not indicated Micro UA Comment Microscopic normal COVID-19 PCR Negative Blood Type O Positive Antibody Screen Negative 04/22/20 04/23/20 04/23/20 19:15 01:06 05:49 WBC 9.3 8.6 RBC 3.51 L 3.50 L Hgb 12.3 L 12.2 L Hct 36.1 L 35.7 L MCV 103.0 H 102.0 H MCH 35.2 H 35.0 H MCHC 34.2 34.3 RDW 13.8 13.9 Plt Count 203 221 Neut % (Auto) 68.7 62.6 Lymph % (Auto) 19.3 L 22.9 L Rowan % (Auto) 8.0 9.0 Eos % (Auto) 3.4 4.7 H Baso % (Auto) 0.6 0.8 Neut # (Auto) 6400 5400 Lymph # (Auto) 1800 2000 Rowan # (Auto) 700 800 Eos # (Auto) 300 400 Baso # (Auto) 100 100 PT INR APTT Sodium Potassium Chloride Carbon Dioxide BUN Creatinine Estimated GFR BUN/Creatinine Ratio Glucose Calcium Magnesium 1.9 Total Bilirubin AST ALT Alkaline Phosphatase Total Protein Albumin Globulin Albumin/Globulin Ratio Urine Color Urine Appearance Urine pH Ur Specific [place] Urine Protein Urine Glucose (UA) Urine Ketones Urine Occult Blood Urine Nitrate Urine Bilirubin Urine Urobilinogen Ur Leukocyte Esterase Urine RBC Urine WBC Urine Bacteria Ur Culture Indicated? Micro UA Comment COVID-19 PCR Blood Type Antibody Screen 04/23/20 05:49 WBC RBC Hgb Hct MCV MCH MCHC RDW Plt Count Neut % (Auto) Lymph % (Auto) Rowan % (Auto) Eos % (Auto) Baso % (Auto) Neut # (Auto) Lymph # (Auto) Rowan # (Auto) Eos # (Auto) Baso # (Auto) PT INR APTT Sodium 136 L Potassium 4.2 Chloride 107 Carbon Dioxide 25 BUN 13 Creatinine 0.90 Estimated GFR > 60.0 BUN/Creatinine Ratio 14.4 Glucose 117 H Calcium 9.0 Magnesium 2.0 Total Bilirubin AST ALT Alkaline Phosphatase Total Protein Albumin Globulin Albumin/Globulin Ratio Urine Color Urine Appearance Urine pH Ur Specific [place] Urine Protein Urine Glucose (UA) Urine Ketones Urine Occult Blood Urine Nitrate Urine Bilirubin Urine Urobilinogen Ur Leukocyte Esterase Urine RBC Urine WBC Urine Bacteria Ur Culture Indicated? Micro UA Comment COVID-19 PCR Blood Type Antibody Screen Discharge Plan Discharge Plan Patient Disposition: Home Discharge orders & Medications Prescriptions: Continued allopurinol 300 mg Tablet 300 mg PO QPM RF: 0 amlodipine 5 mg Tablet 7.5 mg PO DAILY RF: 0 Follow up/Referrals: Rei Vega MD [Primary Care Provider] - Mayank Baxter MD [Physician] - 05/01/20 10:00 am Discharge Health Status Multidrug resistant organism: No MDRO Diet/Activity/Treatments Diet: Diet as Tolerated Discharge Data Primary Care Provider: Rei Vega Quality VTE Deep Vein Thrombosis/Pulmonary Embolism Present on Admission: No
--- NOTE | 2020-04-23 17:11 | PC.NURSE ---
provided discharge instruction. no n/v. no pain. no sob. no chest pain. VSS. voiding without difficulty. no BM. all belongings returned to patient.
--- NOTE | 2020-04-30 20:21 | PC.NURSE ---
Late Entry: Flagyl infusion initiated 04/23 at 02:34, complete at 03:35.
== END 2020-04-23 17:05 | disposition home or self-care (01) ==
LOC: ED 17:03 → AC 04-23 07:12
PROVIDERS: Nurse Practitioner Family; Specialist; Admitting Provider Internal Medicine; Emergency Provider Emergency Medicine; Family Provider Family Medicine; PCP Family Medicine; Referring Provider Emergency Medicine; Visit Provider Internal Medicine
PROC: 0DJD8ZZ Inspection of Lower Intestinal Tract, Via Natural or Artificial Opening Endoscopic (ICD-10-PCS; CPT 45378; principal; 2020-04-23 11:45)
DX: K51.40 Inflammatory polyps of colon without complications (principal); K92.1 Melena; K57.30 Diverticulosis of large intestine without perforation or abscess without bleeding; E66.01 Morbid (severe) obesity due to excess calories; Z68.41 Body mass index [BMI] 40.0-44.9, adult; I10 Essential (primary) hypertension; Z11.59 Encounter for screening for other viral diseases
CPT/HCPCS: 45380; 45385; 36415; 74174; 80048; 80053; 81001; 82272; 83735; 85025; 85610; 85730; 86850; 86900; 86901; 87635; 93005; 96361; 96365; 96366; 96367; 99284; G0378; J0744; J2250; J3010

== ENCOUNTER → 2021-05-08 09:06 | Outpatient (CLI) | payer OTHER, SELFPAY ==
[2020-04-22 18:06] VITALS: BMI 42.0
[2021-05-08 10:18] LABS: COVID19 -Nasal RAPID Negative (Negative)
== END ==
PROVIDERS: Family Provider Family Medicine; PCP Family Medicine; Referring Provider Specialist; Visit Provider Specialist
DX: Z20.822 Contact with and (suspected) exposure to COVID-19 (principal)
CPT/HCPCS: 87635; C9803

== ENCOUNTER 2021-05-09 08:52 | Day surgery (SDC) | payer OTHER, SELFPAY ==
[2020-04-22 18:06] VITALS: BMI 42.0
--- NOTE | 2021-05-09 | PATH_ITS ---
[facility] Accession Number: [id number] . 01 Material submitted: . colon - COLON POLYP AT 45 CM . 02 Diagnosis: Colon, Polyp at 45 cm, Biopsy: Inflammatory polyp. Negative for dysplasia and malignancy. MRV 05/12/2021 1353 Local . 02 Electronically signed: . Ely Hines MD, Pathologist NPI- [id number] . 01 Gross description: . COLON POLYP AT 45 CM: Received in formalin are multiple fragment(s) of gamboa, soft tissue measuring 1.5 x 1.0 x 0.4 cm in aggregate submitted entirely in 1 cassette(s) /[id number] 05/10/2021 0517 Local . 02 Pathologist provided ICD-10: K63.5 . 02 CPT . 893215 Performed at: 01 [facility] [address] [id number] MD Curry Spangler MD Phone: [phone] Performed at: 02 [facility] [address] [place], [place] [id number] MD Ely Hines MD Phone: [phone]
[2021-05-09 09:20] VITALS: BP 147/86; PULSE 58; RESP 18; TEMP 36.4; O2SAT 96; BMI 41.3
[2021-05-09] MEDS: LACTATED RINGERS 1,000 ML 100 ML IV (09:28)
--- NOTE | 2021-05-09 11:13 | PM.HP.1 ---
History of Present Illness History of Present Illness Chief complaint: [facility] Narrative: Patient is a gentleman here for a repeat of exam of his left colon to make sure that the large inflammatory polyps have resolved it was seen on his last scope last year. Patient History Medical History Arthritis Asthma Bigeminy Diverticulitis Diverticulosis GERD (gastroesophageal reflux disease) Gout HTN (hypertension) Kidney stones Pneumonia Post-polio syndrome Rash Surgical History History of arthroplasty of left shoulder (05/03/18) History of arthroplasty of right knee (~2014) History of arthroscopy of right shoulder History of cholecystectomy History of esophageal surgery History of laparoscopic cholecystectomy History of vasectomy Hx of tonsillectomy Status post left unicompartmental knee replacement (~2013) Family & Social History Family History Mother Diabetes mellitus Sister Diabetes mellitus Social History: household members spouse Tobacco & Substance use: Smoking Status Never smoker alcohol intake current alcohol intake frequency a few times a month Substance Use Type does not use Meds Home Medications and Allergies Home Medications Medication Instructions Recorded Confirmed Type allopurinol 300 mg tablet 300 mg PO QPM 04/04/18 05/09/21 History amlodipine 5 mg tablet 7.5 mg PO DAILY 03/31/19 05/09/21 History Allergies Allergy/AdvReac Type Severity Reaction Status Date / Time Penicillins Allergy Pt unsure Verified 05/01/20 13:43 of reaction, has had in past w/no problem Review of Systems Review of Systems Narrative: No chest pain breathing issues at this time. No black or bloody bowel movements. No seizures. Exam Vital Signs (past 8 hours): - 05/09/21 09:20 Temperature 97.6 F Pulse Rate 58 L Respiratory Rate 18 Blood Pressure 147/86 H Pulse Oximetry 96 Oxygen Delivery Method Room Air Narrative Exam Narrative: Pleasant cooperative patient no apparent distress. Lungs are clear to auscultation. No rales or rhonchi. Heart regular rate and rhythm no murmur gallop. Abdomen is soft nontender without mass. No obvious hernias. Patient is alert and oriented x3. Assessment & Plan Assessment & Plan narrative: Flexible sigmoidoscopy to confirm complete resolution of the inflammatory polyps. I have discussed the procedure including risks of bleeding, perforation which would necessitate a major operation. He appears to understand.
--- NOTE | 2021-05-09 11:15 | PM.PREOP ---
Pre-operative Note COVID-19 COVID-19 status: Negative Result date/Date tested (Pos, Neg/Pending): 05/08/21 Interval Note History & Physical reviewed/Exam performed by Physician: Yes Changes to H&P: No ASA Class (for procedural sedation): III
[2021-05-09] MEDS: MIDAZOLAM 5 MG/5 ML VIAL IV (11:16)
[2021-05-09] MEDS: fentaNYL 250 MCG/5 ML INJ IV (11:17)
[2021-05-09 11:51] VITALS: BP 116/56; PULSE 68; RESP 16; TEMP 36.7; O2SAT 94
--- NOTE | 2021-05-09 11:52 | PM.OP.ENDO ---
Operative Date/Time/Diagnoses Date of procedure: 05/09/21 Time of procedure: 11:52 Pre-op diagnosis: Large inflammatory polyp. Re-evaluate. Post-op diagnosis: same Procedure & Clinicians Study performed: Flexible sigmoidoscopy to the hepatic flexure. Snare of large inflammatory polyp to confirm diagnosis. Multiple segments removed that were quite large. Very difficult to gain purchase on the polyp. Same procedure as scheduled: Yes Indications: Confirm diagnosis of a large polyp Surgeon: Mayank Baxter Procedure Notes SCOAP/Timeout: Performed Procedure in detail: Patient was placed in left lateral decubitus position underwent IV sedation directed by the surgeon consisting of fentanyl and Versed. Patient has a narrowed anus. The scope was inserted and advanced to the level the Paddock flexure. Was very difficult to get through the sigmoid colon due to a stricture and extensive diverticulosis at about 40 cm. Just above this area was a large polyp. As I egress tie saw nothing other than mariscal diverticulosis. The polyp was identified and I snared multiple large pieces of it. I did not attempt to remove the entire thing since it was felt to be benign and I did not want to increase the risk of perforating the patient. The area was heavily tattooed so I did not attempt further tattooing. The scope was removed the rest away there was 1 other tiny lesion which I cauterized. Patient tolerated the procedure well. The prep was good. Scope withdrawal time: Not applicable Sedation minutes: 28 Complications: none Post-procedure Recommendations: Other recommendation (Complete colonoscopy in 4 years.) Follow up: as needed Disposition: PACU
[2021-05-09 11:56] VITALS: BP 109/64; PULSE 72; RESP 16; O2SAT 94
[2021-05-09 12:01] VITALS: BP 106/51; PULSE 70; RESP 24; TEMP 36.2; O2SAT 94
--- NOTE | 2021-05-09 12:03 | SUR.PHASEI ---
Stable PACU stay, Dr. Baxter in to speak to pt, examined pt's large soft abdomen. Pt to [facility]
[2021-05-09 12:05] VITALS: BP 120/79; PULSE 71; RESP 16; TEMP 36.4; O2SAT 95
--- NOTE | 2021-05-09 12:12 | SUR.PHASEI ---
Both hearing aids with pt on transfer to [facility].
[2021-05-09 12:19] VITALS: BP 102/67; PULSE 50; TEMP 36.8; O2SAT 93
== END 2021-05-09 12:45 | disposition home or self-care (01) ==
PROVIDERS: Family Provider Family Medicine; PCP Family Medicine; Referring Provider Specialist; Visit Provider Specialist
PROC: 0DJD8ZZ Inspection of Lower Intestinal Tract, Via Natural or Artificial Opening Endoscopic (ICD-10-PCS; CPT 45378; principal; 2021-05-09 10:00)
DX: K51.40 Inflammatory polyps of colon without complications (principal); I10 Essential (primary) hypertension; K21.9 Gastro-esophageal reflux disease without esophagitis; J45.909 Unspecified asthma, uncomplicated; K57.30 Diverticulosis of large intestine without perforation or abscess without bleeding
CPT/HCPCS: 45385; 99152; 99153; J2250; J3010

== ENCOUNTER → 2023-06-15 13:58 | Outpatient (CLI) | payer OTHER, SELFPAY ==
[2020-04-22 18:06] VITALS: BMI 42.0
--- NOTE | 2023-06-15 14:00 | DI.CT.S_ITS ---
PROCEDURE: CT UE RT WO CON INDICATIONS: Primary osteoarthritis, right shoulder TECHNIQUE: Noncontrast 1-1.5 mm thick sections acquired from the acromioclavicular joint to the inferior scapula, with coronal and sagittal reformatting. COMPARISON: None. FINDINGS: Image quality: Excellent. Bones: Moderate acromioclavicular joint osteoarthritic changes are seen with joint space narrowing, subchondral sclerosis and downward osteophyte formation depressing the musculotendinous junction of supraspinatus. Severe glenohumeral joint osteoarthritic changes also seen with complete loss of joint space, extensive subchondral sclerosis and cyst formation and prominent inferior marginal osteophyte formation. There is no acute shoulder fracture or dislocation. No suspicious bony lesions. The visualized right upper ribs are intact. Soft tissues: There is no gross full-thickness rotator cuff tendon rupture. No significant rotator cuff muscle atrophy is seen on sagittal images. No abnormal soft tissue calcifications are seen. No significant joint effusion or subacromial subdeltoid bursal fluid. There is no axillary lymphadenopathy. Visualized right upper to midlung field is clear. IMPRESSION: 1. Severe right glenohumeral joint osteoarthritis and moderate right acromioclavicular joint osteoarthritis. No acute shoulder fracture or dislocation. No suspicious bony lesions. 2. No full-thickness rotator cuff tendon rupture. No significant muscle atrophy. No significant joint effusion or abnormal soft tissue calcifications. Dictated by: Eben Hartmann M.D. on 06/15/2023 at 16:40 Approved by: Eben Hartmann M.D. on 06/15/2023 at 16:42
== END ==
PROVIDERS: Family Provider Family Medicine; PCP Family Medicine; Referring Provider Orthopaedic Surgery; Visit Provider Orthopaedic Surgery
DX: M19.011 Primary osteoarthritis, right shoulder (principal); Z01.818 Encounter for other preprocedural examination
CPT/HCPCS: 73200; 93005

== ENCOUNTER → 2023-06-15 14:02 | Outpatient (CLI) | payer OTHER, SELFPAY ==
[2020-04-22 18:06] VITALS: BMI 42.0
== END ==
PROVIDERS: Family Provider Family Medicine; PCP Family Medicine; Referring Provider Orthopaedic Surgery; Visit Provider Orthopaedic Surgery
DX: Z01.818 Encounter for other preprocedural examination (principal)
CPT/HCPCS: 93005

== ENCOUNTER 2023-07-07 09:11 | Inpatient (IN) | payer OTHER, SELFPAY ==
[2020-04-22 18:06] VITALS: BMI 42.0
[2023-07-01 09:26] VITALS: BMI 40.6
[2023-07-07] VITALS (9 sets, daily range): BP systolic 105–153; BP diastolic 44–86; PULSE 66–81; RESP 14–21; TEMP 36.2–36.4; O2SAT 89–97; BMI 40.4
--- NOTE | 2023-07-07 06:00 | DI.RAD.S_ITS ---
PROCEDURE: XR SHOULDER RT MIN 2V INDICATIONS: Arthroplasty, pain TECHNIQUE: 1 views of the shoulder were acquired. COMPARISON: None. FINDINGS: Bones: Total shoulder arthroplasty in good position. No evidence of fracture. Soft tissue air present. Soft tissues: No suspicious soft tissue calcifications. IMPRESSION: Total right shoulder arthroplasty in good position. No fracture. Approved by: Mushtaq Yap M.D. on 07/07/2023 at 14:31
[2023-07-07] MEDS: ACETAMINOPHEN 325 MG TABLET 975 MG PO (10:19)
[2023-07-07] MEDS: LACTATED RINGERS 1,000 ML 42 ML IV (10:19)
--- NOTE | 2023-07-07 10:54 | PM.PREOP ---
Pre-operative Note Interval Note History & Physical reviewed/Exam performed by Physician: Yes Changes to H&P: No
[2023-07-07] MEDS: CEFAZOLIN VIAL 3 GM in SODIUM CHLORIDE 0.9% 100 ML IV (11:10)
[2023-07-07] MEDS: TRANEXAMIC ACID 1,000 MG VIAL 1000 MG INJ (11:25)
--- NOTE | 2023-07-07 11:39 | SUR.OPER ---
Beach chair with shoulder positioner. Lower body on padded OR bed. Head in foam padded head cradle, secured with straps. Non-operative arm secured <90 degrees abduction. Pillow under knees. Safety belt at thigh. Cloth tape over blanket over lower legs.
[2023-07-07] MEDS: BUPIVACAINE 0.25% (PF) 30 ML, EPINEPHrine 0.15 MG INJ (12:25)
--- NOTE | 2023-07-07 12:57 | P.OP_ITS ---
Operative Date/Time/Diagnoses Date of procedure: 07/07/23 Time of procedure: 12:57 Pre-op diagnosis: Right shoulder glenohumeral arthritis Post-op diagnosis: same Procedure & Clinicians Procedure: Right reverse total shoulder arthroplasty Same procedure as scheduled: Yes Indications: Indications: This is a 77-year-old male who has glenohumeral arthritis. Symptoms have been present for years, insidious onset. Patient has failed conservative therapy including injections, physical therapy, anti-inflammatories and activity modification. After extensive discussion in clinic, they wished to go forward with surgery. Risks and benefits were described including the risk of infection, bleeding, damage to internal structures including nerves. We also discussed the risk of failure of surgery and the need for revision surgery as well as the risk of anesthesia. The patient expressed understanding with these risks and wished to go forward with surgery. Surgeon: Koko Gaines Ortho Nurse: Thierno Grande Anesthesia Type: General Operative Notes Findings: Findings: Osteoarthritis of the glenoid and humeral head, intact rotator cuff, as noted on preoperative imaging and under direct visualization Closure Type: primary Specimen(s): none sent Prosthetic devices, grafts, tissues, transplants, or devices: Tornier implants Base plate: 29, +3 mm offset Glenosphere: 39 Stem: Perform 4 Poly: +0 concentric Estimated Blood Loss (mL): 50 Blood products transfused: none Procedure in detail: Patient was seen in the preoperative holding unit. The correct right shoulder was identified and marked with my initials. Again we discussed the risks and benefits of surgery and they wished to go forward with surgery. The patient was brought back to the operating room and placed supine on the operating table. Smooth endotracheal intubation was performed by anesthesia. All prominences were padded and they were placed into the beach chair position. Intravenous antibiotics were given. The right shoulder was then prepped with the standard sterile preparation and draping. A time-out was then performed in my initials were again identified on the correct shoulder. 1 g of IV tranexamic acid was given. A standard deltopectoral incision was made. Skin flaps were made. The cephalic vein was identified and retracted laterally. This was protected throughout the remainder of the case. Sharp dissection was made along the deltoid, subacromial and subcoracoid space to release adhesions. The conjoined tendon was identified and the axillary nerve was palpated and continuous using the tug test. It was protected throughout the remainder of the case. A brown retractor was placed underneath the deltoid muscle and a darach retractor underneath the conjoint tendon. The anterior circumflex artery and associated veins on the lower border of the subscapularis were identified and tied off using 0-Vicryl. The biceps tendon was identified in the bicipital groove. This was released from its s [place], and taken from its origin on the glenoid and tied into the pectoralis tendon for a solid tenodesis. We then began a subscapularis peel. The subscapularis was tagged with an Ethibond suture. A 360 degree circumferential release of the subscapularis was performed with protection of the axillary nerve. The coracohumeral ligament was released at the base of the coracoid. The coracoacromial ligament was left intact. The shoulder was then dislocated. Osteophytes were removed using combination of rongeur and osteotome. The rotator cuff was noted to be intact. An intramedullary guide was used set at version of 30?. Using an oscillating saw a conservative humeral head cut was made. Impaction reamers were reamed up to a size 4 stem with a built-in angle 135?. A neck protector was placed. Attention was then turned to the glenoid. After retracting the humeral head posteriorly a circumferential release was performed of the capsule with protection of the axillary nerve. The labrum was then released starting at the biceps anchor and going around the rim a small amount of triceps was released from the inferior glenoid. A center guide pin was then placed using the guide, followed by Reamer. After adequate cartilage was removed the center drill hole was drilled and measured. The base plate was then implanted and screwed into place. The superior drill hole was drilled and filled in a nonlocking fashion, followed by the inferior and anterior holes in locking fashion, the posterior hole was also filled. A 39 glenosphere was then selected and screwed into place onto the base plate. Turning back to the humerus, the humeral head was delivered and trialed with a 0 concentric. The arm was taken through range of motion and this was felt to be stable. The trial was then removed and a dilute Betadine wash was then performed with 1 L of sterile saline. Before placing the final implant, drill holes were made in the bicipital groove for the subscapularis repair, and sutures were passed through the drill holes. The final stem was then impacted into the humerus. The shoulder was then reduced and again brought through range of motion and was felt to be stable. The interval was then closed using #2 Ethibond. The subscapularis was then repaired using a modified racking hitch with nice loupes. The deltopectoral interval was then closed with #2 Ethibond. The skin was closed with 2-0 Vicryl and Monocryl followed by Aquacel dressing. Patient was awoken from anesthesia and brought back to the postoperative recovery unit without issue. They were placed into a sling. Assisting participation: This operation could not have been safely performed (without compromising the technical results or length of the procedure) without the assistance of a skilled admissions assistant. The admissions assistant was medically necessary for proper positioning, retraction and manipulation of instruments, proper exposure, graft prep, and manipulation of tissue. Complications: none Post-operative Condition: stable Disposition: PACU Plan for aftercare: Postoperative instructions: Sling to remain on for 6 weeks. No external rotation past neutral for 6 weeks. Okay for him to come off her shower. Okay to shower over the Aquacel dressing. If any water gets underneath the dressing, remove the dressing. First postoperative visit in 2 weeks.
--- NOTE | 2023-07-07 15:07 | SUR.PHASEII ---
Discharge instructions reviewed with spouse and patient. Answers repeated multiple times. Lungs clear. O2 sat 92% RA.
== END 2023-07-07 15:02 | disposition home or self-care (01) | DRG 483 ==
PROVIDERS: Admitting Provider Orthopaedic Surgery; Family Provider Family Medicine; PCP Family Medicine; Referring Provider Orthopaedic Surgery; Visit Provider Orthopaedic Surgery
PROC: 0RRJ00Z Replacement of Right Shoulder Joint with Reverse Ball and Socket Synthetic Substitute, Open Approach (ICD-10-PCS; CPT 23472; principal; 2023-07-07 10:45)
DX: M19.011 Primary osteoarthritis, right shoulder (principal)
CPT/HCPCS: 64450; 73030; C1776; J0171; J0330; J0690; J1100; J2405; J2704; J3010